=== PATIENT | female | born 1965 | race Asian ===

== ENCOUNTER 2022-04-21 01:05 | Inpatient (IN) | payer OTHER ==
[~2022-04-21] VITALS: Ht 162.6 cm; Wt 122.5 kg
--- NOTE | 2022-04-21 01:15 | NUR ---
KRISHNA FROM [facility] C/O LOW BP AND TACHYCARDIA SINCE 1500. UPON TRIAGE + H/A. PT A/OX2. TOLERATING R/A WELL WITH NO RESP DISTRESS. CONNECTED PT TO POX AND MONITOR. SAFETY MEASURES IN PLACE.
[2022-04-21] MEDS ORDERED: ACETAMINOPHEN ES 500 MG TABLET ONE (01:19)
--- NOTE | 2022-04-21 01:25 | NUR ---
PER EMS; PT TOOK TYLENOL 1000MG PO AT 0000. DR. SUSANA WESTBROOK AWARE AND D/C TYLENOL ORDER.
[2022-04-21] MEDS ORDERED: IV NS 0.9% 1,000 ML BAG IV ONE ×2 (01:30→02:30)
[2022-04-21] MEDS ORDERED: ACETAMINOPHEN 325 MG TABLET PO ONE (01:30)
--- NOTE | 2022-04-21 01:36 | NUR ---
IV ESTABLISHED RAC #18G S/L BLOOD AND COVID ANTIGEN SWAB COLLECTED AND SENT TO LAB
[2022-04-21 01:49] LABS: BASOPHILS % (AUTO) 0.2 % (0.0-2.0); HEMATOCRIT 37 % (33-45); LYMPHOCYTES # (AUTO) 1.3 K/uL (0.8-4.8); LYMPHOCYTES % (AUTO) 8.5 % (20.0-44.0); MEAN CORPUSCULAR HGB CONC 33 g/dl (31.0-36.0); MEAN CORPUSCULAR VOLUME 83 fL (82-100); MONOCYTES # (AUTO) 1.7 K/uL (0.1-1.30); MONOCYTES % (AUTO) 11.4 % (2.0-12.0); NEUTROPHILS % (AUTO) 79.9 % (43.0-81.0); PLATELET COUNT (AUTO) 180 K/uL (150-450); RED BLOOD CELL COUNT(AUTO) 4.44 MIL/uL (4.0-5.2)
--- NOTE | 2022-04-21 01:57 | NUR ---
URINE COLLECTED VIA F/A AND MRSA SWAB COLLECTED VIA L NARE AND SENT TO LAB
[2022-04-21 01:59] LABS: CALCIUM, SERUM 8.8 mg/dL (8.5-10.1); CARBON DIOXIDE 25 mmol/L (21-32); CHLORIDE 96 mmol/L (98-107); CREATININE 0.9 mg/dL (0.6-1.3); GLUCOSE 143 mg/dL (74-106); POTASSIUM 3.4 mmol/L (3.5-5.1); SODIUM SERUM 130 mmol/L (136-145); UREA NITROGEN, BLOOD 10 mg/dL (7-18)
[2022-04-21 02:12] LABS: ALANINE AMINOTRANSFERASE 47 U/L (12-78); ALBUMIN 2.8 g/dL (3.4-5.0); ALKALINE PHOSPHATASE 293 U/L (46-116); ASPARTATE AMINOTRANSFERASE 61 U/L (15-37); BILIRUBIN,DIRECT 0.9 mg/dL (0.0-0.2); BILIRUBIN,TOTAL 1.5 mg/dL (0.2-1.0); TOTAL PROTEIN, SERUM 7.8 g/dL (6.4-8.2)
[2022-04-21 02:16] LABS: BILIRUBIN,URINE 1+ (NEGATIVE); COLOR,URINE DARK YELLOW (YELLOW); LEUKOCYTE ESTERASE ,URINE 1+ (NEGATIVE); NITRITE, URINE POSITIVE (NEGATIVE); PH,URINE >9.0 (5.0-8.0); PROTEIN,URINE 2+ mg/dl (NEGATIVE); UGLUCOSE NEGATIVE (NEGATIVE); UROBILINOGEN,URINE 0.2 EU/dL (0.2)
[2022-04-21 02:17] LABS: BACTERIA,URINE Few /HPF (None Seen); SQUAMOUS EPITHELIAL CELL,UR Few /HPF (None Seen)
[2022-04-21] MEDS ORDERED: CEFTRIAXONE 1GM BAG (ER ONLY) 1 GM/50 ML PIGGYBACK IV ONE (02:30)
[2022-04-21] MEDS ORDERED: CEFTRIAXONE 1GM BAG (ER ONLY) 50 ML IV ONE (02:45)
[2022-04-21] MEDS ORDERED: DOCU100C36 PO (04:13)
[2022-04-21] MEDS ORDERED: BRIM5DRO3 LEFTEYE (04:13)
[2022-04-21] MEDS ORDERED: NORT25CA5 PO (04:13)
[2022-04-21] MEDS ORDERED: BENA20TA9 PO (04:13)
[2022-04-21] MEDS ORDERED: METF-442 PO (04:13)
[2022-04-21] MEDS ORDERED: MONT10TA22 PO (04:13)
[2022-04-21] MEDS ORDERED: INSU100I26 SQ (04:13)
[2022-04-21] MEDS ORDERED: FLUT1DIS INH (04:13)
[2022-04-21] MEDS ORDERED: OMEP20TA5 PO (04:13)
[2022-04-21] MEDS ORDERED: PREG150C PO (04:13)
[2022-04-21] MEDS ORDERED: MAGN400T8 PO (04:13)
[2022-04-21] MEDS ORDERED: LATA2.5D15 EACHEYE (04:13)
[2022-04-21] MEDS ORDERED: AMLO-212 PO (04:13)
[2022-04-21] MEDS ORDERED: DULO20CA PO (04:13)
[2022-04-21] MEDS ORDERED: SENN-18 PO (04:13)
[2022-04-21] MEDS ORDERED: OXYB-58 PO (04:13)
[2022-04-21] MEDS ORDERED: CHOL200026 PO (04:13)
[2022-04-21] MEDS ORDERED: AMLO2.5T4 PO (04:13)
[2022-04-21] MEDS ORDERED: FLUT16SP BNOSTRILS (04:13)
[2022-04-21] MEDS ORDERED: KETO10DR3 LEFTEYE (04:13)
[2022-04-21] MEDS ORDERED: TIMO5SOL11 EACHEYE (04:13)
[2022-04-21] MEDS ORDERED: ATOR40TA PO (04:13)
[2022-04-21] MEDS ORDERED: VALP250S4 PO (04:13)
[2022-04-21] MEDS ORDERED: DORZ10DR10 EACHEYE (04:13)
[2022-04-21] MEDS ORDERED: BACL10TA PO (04:13)
--- NOTE | 2022-04-21 04:17 | NUR ---
PAGED NAVAL AIRCREWMAN OPERATOR FOR DR FUENTES, [facility]
--- NOTE | 2022-04-21 04:59 | NUR ---
RE PAGED MIKE FOR DR FUENTES
[2022-04-21] MEDS ORDERED: HYDROCODONE/APAP 5/325MG TABLET PO PRN (06:30)
[2022-04-21] MEDS ORDERED: ONDANSETRON HCL/PF 4 MG/2 ML VIAL IVP PRN (06:30)
[2022-04-21] MEDS ORDERED: TEMAZEPAM 15 MG CAPSULE PO PRN (06:30)
[2022-04-21] MEDS ORDERED: MAG HYDROX/AL HYDROX/SIMETH 30 ML UDC PO PRN (06:30)
[2022-04-21] MEDS ORDERED: MAGNESIUM HYDROXIDE 30 ML UDC PO PRN (06:30)
[2022-04-21] MEDS ORDERED: DEXTROSE 50%-WATER 50 ML DISP.SYRIN IV PRN (06:30)
[2022-04-21] MEDS ORDERED: Z GUARD REMEDY 4 OZ OINT TP PRN (06:30)
[2022-04-21] MEDS ORDERED: MORPHINE SULFATE INJ 2 MG/ML DISP.SYRIN IV PRN (06:30)
--- NOTE | 2022-04-21 07:15 | NUR ---
RECEIVEDPT FROM TATIANA CARRERA PT AWAKE FALLOW COMMAND AND ORINTED X4 NO PAIN NOTED
--- NOTE | 2022-04-21 08:00 | NUR ---
RESTING AND ASLEEPY HR 133B/MIN DININES CHEST PAIN OR SOB
--- NOTE | 2022-04-21 09:25 | NUR ---
TEMP 100F TYLENOLE 650MG PO GIVEN
[2022-04-21] MEDS: BLOOD SUGAR DIAGNOSTIC 1 EACH STRIP IN SCH ×4 (09:34→22:41)
[2022-04-21] MEDS ORDERED: ACETAMINOPHEN 325 MG TABLET ONE (09:48)
[2022-04-21] MEDS ORDERED: PANTOPRAZOLE 40 MG TABLET.DR PO ONE (09:48)
[2022-04-21] MEDS: PANTOPRAZOLE 40 MG TABLET.DR PO SCH (09:50)
[2022-04-21] MEDS: ACETAMINOPHEN 325 MG TABLET PO PRN ×2 (09:51→20:12)
[2022-04-21] MEDS: IV NS 0.9% 1,000 ML IV PRN (10:02)
--- NOTE | 2022-04-21 10:23 | NUR ---
WATING FOR MONITER BED
--- NOTE | 2022-04-21 11:35 | NUR ---
room 324
--- NOTE | 2022-04-21 11:45 | NUR ---
HAND OFF CLOVER RN TO ROOM 324 VIA RADHA STABLE AWAKE AND ALERT
--- NOTE | 2022-04-21 11:55 | NUR ---
RN Receiving Report Patient arrived to unit. AOx4 able to express her concerns. Introduced myself, oriented pt to unit and made her aware of call light use. Patient states no pain, no distress. All safety precautions taken, call light and table within reach bed at lowest position.
[2022-04-21 16:00] VITALS: BP 133/74
[2022-04-21] MEDS: BENAZEPRIL HCL 10 MG TABLET PO SCH (17:42)
[2022-04-21] MEDS: MONTELUKAST SODIUM (10MG) 10 MG TABLET PO SCH (17:42)
[2022-04-21] MEDS: PREGABALIN 100 MG CAPSULE PO SCH (17:42)
[2022-04-21] MEDS: OXYBUTYNIN CHLORIDE ER 5 MG TAB PO SCH (17:43)
[2022-04-21] MEDS: VALPROIC ACID 250 MG/5 ML UDC PO SCH (17:43)
[2022-04-21] MEDS: DOCUSATE SODIUM 100 MG CAPSULE PO SCH (17:43)
[2022-04-21] MEDS: BACLOFEN (10 MG) 10 MG TABLET PO SCH (17:47)
[2022-04-21] MEDS: DORZOLAMIDE OPTH 2% 10 ML BOTTLE EACHEYE SCH (17:48)
--- NOTE | 2022-04-21 18:08 | NUR ---
RN Closing Note Patient AOx3-4 able to express her concerns Patient stable throughout shift, administered medication and provided care as needed. Patient able to respond to questions correctly, takes her time to recall information. All safety precautions taken, call light and table within reach. Will endorse to night nurse for continuity of care.
--- NOTE | 2022-04-21 20:04 | NUR ---
MDS MANAGER OPENING NOTE PATIENT SLEEPING IN BED, EASILY AWAKENED, PT ALERT/ORIENTED X 3 WITH DELAYED SPEECH, PT ABLE TO MAKE NEEDS KNOWN. PATIENT STABLE ON RA, NO S/S OF DISTRESS OR SOB NOTED, BREATHING EVEN AND UNLABORED. PATIENT ON EXTERNAL MARZIPAN MAKER READING SINUS TACHY, HR: 125. SINCLAIR CATHETER IN PLACE AND DRAINING URINE TO GRAVITY. IV ACCESS ON LEFT AC # 18G INTACT AND INFUSING NS @ 75 ML/HR. SAFETY MEASURES IN PLACE: CALL LIGHT WITHIN REACH, SIDE RAILS UP X 2, BED LOCKED IN LOWEST POSITION, HOB ELEVATED, BED ALARM ON. WILL CONTINUE TO MONITOR PATIENT
[2022-04-21 21:06] VITALS: BP 118/68
[2022-04-21] MEDS: ATORVASTATIN 40 MG TABLET PO SCH (22:41)
[2022-04-21] MEDS: DULOXETINE HCL 30 MG CAPSULE.DR PO SCH (22:41)
[2022-04-21] MEDS: NORTRIPTYLINE HCL 25 MG CAPSULE PO SCH (22:42)
[2022-04-21] MEDS: INSULIN GLARGINE, 100 UNIT/ML CARTRIDGE SQ SCH (22:54)
[2022-04-21] MEDS: LATANOPROST EYE DROP 0.005% 2.5 ML BOTTLE EACHEYE SCH (23:00)
[2022-04-22 01:14] VITALS: BP 96/50
[2022-04-22] MEDS ORDERED: CEFTRIAXONE 1 G in IV D5W 50 ML IV SCH (02:00)
[2022-04-22] MEDS: CEFTRIAXONE 2 G in IV D5W 100 ML IV SCH (03:16)
[2022-04-22] MEDS: ACETAMINOPHEN 325 MG TABLET PO PRN ×2 (05:30→17:17)
[2022-04-22] MEDS: IV NS 0.9% 1,000 ML IV PRN ×2 (05:47→22:25)
[2022-04-22 06:00] VITALS: BP 108/53
[2022-04-22 06:21] LABS: BASOPHILS % (AUTO) 0.4 % (0.0-2.0); HEMATOCRIT 30 % (33-45); HEMOGLOBIN 9.9 g/dL (11.5-14.8); LYMPHOCYTES # (AUTO) 1.4 K/uL (0.8-4.8); LYMPHOCYTES % (AUTO) 14.7 % (20.0-44.0); MEAN CORPUSCULAR HGB CONC 33 g/dl (31.0-36.0); MEAN CORPUSCULAR VOLUME 83 fL (82-100); MONOCYTES # (AUTO) 1.7 K/uL (0.1-1.30); MONOCYTES % (AUTO) 16.8 % (2.0-12.0); NEUTROPHILS # (AUTO) 6.6 K/uL (1.8-8.9); NEUTROPHILS % (AUTO) 67.1 % (43.0-81.0); PLATELET COUNT (AUTO) 111 K/uL (150-450); RED BLOOD CELL COUNT(AUTO) 3.58 MIL/uL (4.0-5.2); WHITE BLOOD COUNT (AUTO) 9.8 K/uL (4.3-11.0)
[2022-04-22 06:57] LABS: CALCIUM, SERUM 8.1 mg/dL (8.5-10.1); CREATININE 0.8 mg/dL (0.6-1.3); MAGNESIUM 1.6 mg/dL (1.8-2.4); PHOSPHORUS 1.9 mg/dL (2.5-4.9)
--- NOTE | 2022-04-22 07:03 | NUR ---
AUCTIONEER ART CLOSING NOTE PATIENT SLEEPING IN BED, EASILY AWAKENED, PT ALERT/ORIENTED X 3 WITH DELAYED SPEECH, PT ABLE TO MAKE NEEDS KNOWN. PATIENT STABLE ON RA, NO S/S OF DISTRESS OR SOB NOTED, BREATHING EVEN AND UNLABORED. PATIENT ON EXTERNAL BULK PICKER READING SINUS TACHY, HR: 121. SINCLAIR CATHETER IN PLACE AND DRAINING URINE TO GRAVITY, OUTPUT OF 650 ML. IV ACCESS ON RIGHT AC # 18G INTACT AND INFUSING NS @ 75 ML/HR. MEDICATIONS GIVEN ORDERED, PT NEEDS MET THROUGHOUT SHIFT, PATIENT TURNED Q2H. SAFETY MEASURES IN PLACE: CALL LIGHT WITHIN REACH, SIDE RAILS UP X 2, BED LOCKED IN LOWEST POSITION, HOB ELEVATED, BED ALARM ON. WILL ENDORSE TO DAYSHIFT RN FOR CONTINUITY OF CARE
[2022-04-22] MEDS: BLOOD SUGAR DIAGNOSTIC 1 EACH STRIP IN SCH ×4 (07:10→22:23)
[2022-04-22] MEDS: INSULIN REGULAR, HUMAN 100 UNIT/ML 3 ML VIAL SQ PRN ×3 (07:11→16:49)
--- NOTE | 2022-04-22 07:30 | NUR ---
RN OPENING NOTE RECEIVED PATIENT IN BED AWAKE, A/O X4, VERBALLY RESPONSIVE. NO SIGNS OF ACUTE DISTRESS NOTED. ON ROOM AIR, TOLERATING WELL, NO SOB NOTED, BREATHING EVEN AND UNLABORED. NOTED WITH IV ACCESS ON RAC #18G, INTACT AND PATENT WITH NS @ 75 ML RUNNING. ON RETAIL LEASING AGENT SHOWING SINUS TACHYCARDIA, HR @ 115. DENIES ANY CHEST PAIN . SAFETY MEASURE IN PLACE. BED IN LOWEST AND LOCKED POSITION, SIDE RAILS UP X2, CALL LIGHT PLACED WITHIN EASY REACH. WILL CONTINUE TO MONITOR PATIENT.
[2022-04-22 08:29] VITALS: BP 86/46
[2022-04-22] MEDS: PANTOPRAZOLE 40 MG TABLET.DR PO SCH (08:30)
[2022-04-22] MEDS: SENNOSIDES 8.6 MG TABLET PO SCH (08:30)
[2022-04-22] MEDS: OXYBUTYNIN CHLORIDE ER 5 MG TAB PO SCH ×3 (08:30→16:48)
[2022-04-22] MEDS: VALPROIC ACID 250 MG/5 ML UDC PO SCH ×2 (08:30→16:48)
[2022-04-22] MEDS: PREGABALIN 100 MG CAPSULE PO SCH ×3 (08:30→16:48)
[2022-04-22] MEDS: BACLOFEN (10 MG) 10 MG TABLET PO SCH ×3 (08:31→16:48)
[2022-04-22] MEDS: BENAZEPRIL HCL 10 MG TABLET PO SCH ×2 (08:31→16:48)
[2022-04-22] MEDS: DOCUSATE SODIUM 100 MG CAPSULE PO SCH ×2 (08:31→16:48)
[2022-04-22] MEDS: AMLODIPINE BESYLATE 5 MG TABLET PO SCH (08:31)
[2022-04-22] MEDS: MAGNESIUM OXIDE 400 MG TABLET PO SCH (08:31)
[2022-04-22] MEDS: DORZOLAMIDE OPTH 2% 10 ML BOTTLE EACHEYE SCH ×2 (08:38→16:57)
[2022-04-22] MEDS: TIMOLOL -XE 0.5% 5 ML BOTTLE EACHEYE SCH (08:38)
[2022-04-22 09:01] LABS: POTASSIUM 2.8 mmol/L (3.5-5.1)
--- NOTE | 2022-04-22 09:56 | NUR ---
WOUND CARE CONSULT: PT PRESENTS WITH LOWER ABDOMINAL WOUND WITH SMALL AMOUNT OF SEROSANGUINOUS DRAINAGE, NO ODOR. PT WAS SEEN WITH SURGICAL P.A. AND RECOMMENDATIONS FOR WOUND CARE AND SKIN PROTECTION DISCUSSED WITH NURSING STAFF. PT STATES PREVIOUSLY HAD SUPRAPUBIC CATH. HEALED AREA NOTED SUPERIOR TO OPEN WOUND. PT PLACED ON ISOFLEX LOW AIRLOSS BED. IN AGREEMENT WITH PLAN OF CARE. Addendum: 04/22/22 at 0959 by ROBERT WOOD WNDNU Amended: Links added.
[2022-04-22] MEDS ORDERED: K PHOS NEUTRAL 250 MG TABLET PO ONE (11:00)
[2022-04-22] MEDS: Magnesium 1GM/D5W 100ML PREMIX 100 ML IV SCH ×2 (11:53→13:06)
[2022-04-22] MEDS: POTASSIUM CHLORIDE 20 MEQ TAB.PRT.SR PO SCH ×2 (12:25→16:48)
[2022-04-22 15:55] VITALS: BP 132/75
[2022-04-22] MEDS: MONTELUKAST SODIUM (10MG) 10 MG TABLET PO SCH (17:03)
--- NOTE | 2022-04-22 18:49 | NUR ---
RN CLOSING NOTE PATIENT IN BED AWAKE, WATCHING TV.VERBALLY RESPONSIVE. NO SIGNS OF ACUTE DISTRESS NOTED. REMAINS STABLE ON ROOM AIR, NO SOB NOTED, BREATHING EVEN AND UNLABORED. WITH IV ACCESS ON RAC #18G, INTACT AND PATENT WITH NS @ 75 ML RUNNING. ON E COMMERCE MARKETING ANALYST SHOWING SINUS TACHYCARDIA, HR @ 124. DENIED ANY CHEST PAIN . WITH F/C INTACT, DRAINING CLEAR EZE COLOR URINE. ALL DUE MEDS GIVEN TAKEN WELL. SAFETY MEASURE IN PLACE. BED IN LOWEST AND LOCKED POSITION, SIDE RAILS UP X2, CALL LIGHT PLACED WITHIN EASY REACH. WILL ENDORSE TO NEXT SHIFT FOR CONTINUITY OF CARE.
--- NOTE | 2022-04-22 19:20 | NUR ---
SCREEN VENT BINDER OPENING NOTE PATIENT IS IN BED WATCHING TV. SHE IS ALERT/ORIENTED X 4. PATIENT IS ON RA, NO S/S OF DISTRESS OR SOB; BREATHING EVEN AND UNLABORED. PATIENT ON EXTERNAL TREE WORKER READING SINUS TACHY, HR CAN REACH AROUND 110S. SINCLAIR CATHETER IS IN PLACE AND DRAINING URINE BY GRAVITY. IV ACCESS ON R AC # 18G; PATENT AND INTACT, RUNNING NS @ 75 ML/HR. SAFETY MEASURES IN PLACE: CALL LIGHT AND TABLE ARE WITHIN REACH; SIDE RAILS UP X 2, BED IS LOCKED AND IN LOWEST POSITION; HOB ELEVATED ABOUT 15 DEGREE, BED ALARM ON. WILL CONTINUE MONITORING THE PATIENT AND PROVIDE THE CARE PATIENT NEEDS.
[2022-04-22] MEDS: ATORVASTATIN 40 MG TABLET PO SCH (22:23)
[2022-04-22] MEDS: LATANOPROST EYE DROP 0.005% 2.5 ML BOTTLE EACHEYE SCH (22:23)
[2022-04-22] MEDS: DULOXETINE HCL 30 MG CAPSULE.DR PO SCH (22:23)
[2022-04-22] MEDS: NORTRIPTYLINE HCL 25 MG CAPSULE PO SCH (22:24)
[2022-04-22] MEDS: INSULIN GLARGINE, 100 UNIT/ML CARTRIDGE SQ SCH (22:38)
[2022-04-23 00:06] VITALS: BP 132/71
[2022-04-23] MEDS: CEFTRIAXONE 2 G in IV D5W 100 ML IV SCH (02:09)
[2022-04-23] MEDS: ACETAMINOPHEN 325 MG TABLET PO PRN (02:19)
[2022-04-23 04:17] VITALS: BP 115/71
--- NOTE | 2022-04-23 07:00 | NUR ---
SURFACE ROOM SHOP OPTICIAN CLOSING NOTE PATIENT IS IN BED, SLEEPING. PATIENT IS ON RA, NO S/S OF DISTRESS OR SOB; BREATHING EVEN AND UNLABORED. TOLERATED WELL. PATIENT IS ON EXTERNAL APPLIANCE FIXER READING SINUS TACHY, HR CAN REACH AROUND 110s. SINCLAIR CATHETER IS IN PLACE AND DRAINING URINE BY GRAVITY. IV ACCESS ON R AC # 18G; PATENT AND INTACT, RUNNING NS @ 75 ML/HR. SAFETY MEASURES IN PLACE: CALL LIGHT AND TABLE ARE WITHIN REACH; SIDE RAILS UP X 2, BED IS LOCKED AND IN LOWEST POSITION; HOB ELEVATED ABOUT 15 DEGREE, BED ALARM ON. WILL ENDORSE NEXT SHIFT NURSE FOR CONTINUING PATIENT CARE.
[2022-04-23] MEDS: BLOOD SUGAR DIAGNOSTIC 1 EACH STRIP IN SCH ×2 (07:03→11:54)
[2022-04-23 07:08] LABS: CALCIUM, SERUM 8.1 mg/dL (8.5-10.1); CREATININE 0.6 mg/dL (0.6-1.3); MAGNESIUM 1.8 mg/dL (1.8-2.4); PHOSPHORUS 2.5 mg/dL (2.5-4.9); POTASSIUM 3.2 mmol/L (3.5-5.1)
[2022-04-23 07:10] LABS: BASOPHILS % (AUTO) 0.6 % (0.0-2.0); EOSINOPHILS % (AUTO) 4.4 % (0.0-6.0); HEMATOCRIT 29 % (33-45); HEMOGLOBIN 9.7 g/dL (11.5-14.8); LYMPHOCYTES % (AUTO) 17.5 % (20.0-44.0); MEAN CORPUSCULAR HGB CONC 34 g/dl (31.0-36.0); MEAN CORPUSCULAR VOLUME 82 fL (82-100); MONOCYTES # (AUTO) 0.9 K/uL (0.1-1.30); MONOCYTES % (AUTO) 15.4 % (2.0-12.0); NEUTROPHILS # (AUTO) 3.7 K/uL (1.8-8.9); NEUTROPHILS % (AUTO) 62.1 % (43.0-81.0); PLATELET COUNT (AUTO) 104 K/uL (150-450); RED BLOOD CELL COUNT(AUTO) 3.51 MIL/uL (4.0-5.2); WHITE BLOOD COUNT (AUTO) 5.9 K/uL (4.3-11.0)
--- NOTE | 2022-04-23 07:30 | NUR ---
NUCLEAR ENGINEERING TECHNICIAN NOTES PT IN BED, AWAKE, ALERT AND ORIENTED, NO COMPLAINT OF PAIN, NOT IN DISTRESS, CALL LIGHT WITHIN REACH, IV FLUIDS INFUSING WELL, F/C DRAINING WELL, NEEDS ATTENDED.
[2022-04-23 08:00] VITALS: BP 103/64
[2022-04-23] MEDS ORDERED: POTASSIUM CHLORIDE 20 MEQ TAB.PRT.SR PO ONE (08:30)
[2022-04-23] MEDS: VALPROIC ACID 250 MG/5 ML UDC PO SCH (08:56)
[2022-04-23] MEDS: PANTOPRAZOLE 40 MG TABLET.DR PO SCH (08:57)
[2022-04-23] MEDS: BACLOFEN (10 MG) 10 MG TABLET PO SCH ×2 (08:57→12:25)
[2022-04-23] MEDS: MAGNESIUM OXIDE 400 MG TABLET PO SCH (08:57)
[2022-04-23] MEDS: OXYBUTYNIN CHLORIDE ER 5 MG TAB PO SCH ×2 (08:57→12:25)
[2022-04-23] MEDS: SENNOSIDES 8.6 MG TABLET PO SCH (08:57)
[2022-04-23] MEDS ORDERED: PREGABALIN 25 MG CAPSULE PO SCH (09:00)
[2022-04-23] MEDS: BENAZEPRIL HCL 10 MG TABLET PO SCH (09:00)
[2022-04-23] MEDS: AMLODIPINE BESYLATE 5 MG TABLET PO SCH (09:00)
[2022-04-23] MEDS ORDERED: DOCUSATE SODIUM 250 MG CAPSULE PO SCH (09:00)
[2022-04-23] MEDS: PREGABALIN 100 MG CAPSULE PO SCH ×2 (09:24→12:25)
[2022-04-23] MEDS: PREGABALIN 25 MG CAPSULE PO SCH ×2 (09:24→12:25)
[2022-04-23] MEDS: TIMOLOL -XE 0.5% 5 ML BOTTLE EACHEYE SCH (10:03)
[2022-04-23] MEDS: DORZOLAMIDE OPTH 2% 10 ML BOTTLE EACHEYE SCH (10:04)
[2022-04-23] MEDS ORDERED: CEPH500C2 PO (11:04)
[2022-04-23 12:00] VITALS: BP 135/84
--- NOTE | 2022-04-23 15:40 | NUR ---
SECURITY CHIEF MUSEUM NOTES PT IN BED, AWAKE, ALERT AND ORIENTED, DENIES PAIN, NOT IN DISTRESS, CALL LIGHT WITHIN REACH, DISCHARGE ORDER RECEIVED FROM MD, DISCHARGE AND MEDICATION INSTRUCTIONS PROVIDED TO PT, VERBALIZED UNDERSTANDING, BELONGINGS ACCOUNTED FOR, WOUND TREATMENT AND DRESSING CHANGE DONE TO LOWER ABDOMEN WOUND, REPORT GIVEN TO LUZ ELENA CARRERA OF [facility], PICKED UP BY 2 AMBULANCE PERSONNEL, LEFT VIA GUERNEY IN STABLE CONDITION.
[2022-04-23 18:55] LABS: EOSINOPHILS % (MANUAL) 4 % (0-4); LYMPHOCYTES % (MANUAL) 14 % (16-48); MONOCYTES % (MANUAL) 11 % (0-11.0); NEUTROPHILS % (MANUAL) 71 (42-76)
== END 2022-04-23 15:50 | DRG 720 ==
LOC: ER 01:07 → TELE 11:42
PROVIDERS: ADMIT Nurse Practitioner Acute Care; ATTEND Nurse Practitioner Acute Care
DX: A41.9 Sepsis, unspecified organism (principal); G93.41 Metabolic encephalopathy; E46 Unspecified protein-calorie malnutrition; E87.1 Hypo-osmolality and hyponatremia; E83.39 Other disorders of phosphorus metabolism; J20.9 Acute bronchitis, unspecified; N39.0 Urinary tract infection, site not specified; E87.6 Hypokalemia; E11.9 Type 2 diabetes mellitus without complications; E83.42 Hypomagnesemia; Z68.42 Body mass index [BMI] 45.0-49.9, adult; E66.01 Morbid (severe) obesity due to excess calories; I10 Essential (primary) hypertension; T81.31XA Disruption of external operation (surgical) wound, not elsewhere classified, initial encounter; Y83.8 Other surgical procedures as the cause of abnormal reaction of the patient, or of later complication, without mention of misadventure at the time of the procedure; Y92.89 Other specified places as the place of occurrence of the external cause; J44.0 Chronic obstructive pulmonary disease with (acute) lower respiratory infection; Z79.51 Long term (current) use of inhaled steroids; Z79.899 Other long term (current) drug therapy; Z88.2 Allergy status to sulfonamides; Z88.6 Allergy status to analgesic agent; Z88.8 Allergy status to other drugs, medicaments and biological substances
CPT/HCPCS: 36415; 71045-TC; 80048-TC; 80076-TC; 81001; 82962-TC; 83605-TC; 83735-TC; 83880; 84100-TC; 84484-TC; 85025-TC; 85730-TC; 87040-TC; 87081-TC; 87086-TC; 97110-TC; 97530-TC; A6253; A6403; A6407; C9803; G0378; J0696; J1815; J3475; J7030; J7060

== ENCOUNTER 2022-06-18 23:00 | Inpatient (IN) | payer OTHER ==
[~2022-06-18] VITALS: Ht 162.6 cm; Wt 108.4 kg
[~2022-06-18 23:00] MED LIST: AMLO-212 PO; AMLO2.5T4 PO; ATOR40TA PO; BACL10TA PO; BENA20TA9 PO; BRIM5DRO3 EACHEYE; CEPH500C2 PO; CHOL200026 PO; DOCU100C36 PO; DORZ10DR10 EACHEYE; DULO20CA PO; FLUT16SP; FLUT1DIS INH; INSU100I26 SQ; KETO10DR3 EACHEYE; LATA2.5D15 EACHEYE; MAGN400T8 PO; METF-442 PO; MONT10TA22 PO; NORT25CA5 PO; OMEP20TA5 PO; OXYB-58 PO; PREG150C PO; SENN-18 PO; TIMO5SOL11 EACHEYE; VALP250S4 PO
--- NOTE | 2022-06-18 23:10 | NUR ---
CODE STROKE ACTIVATED
--- NOTE | 2022-06-18 23:10 | NUR ---
[id number] FROM [facility] FOR DIZZY X 30 MIN. PT AAO X 4, BREATHING UNLABORED. PT STATES SYMPTOMS STARTED AROUND 1905. PT UNABLE TO MOVE LUE. NIHSS AND SWALLOW EVAL DONE. PER PATIENT SHE HAS A KNOWN DYSPHAGIA BUT SWALLOWS WHOLE PILLS IN APPLE SAUCE FROM THE FACILITY. PT SEEN AND EXAMINED BY DR DE LA ROSA. PT ATTACHED TO MONITOR AND POX. SAFETY MEASURES IN PLACE.
[2022-06-18] MEDS ORDERED: CT SWABBABLE VALVE TRANS SET 1 EA INFUS.SET MC ONE (23:15)
[2022-06-18] MEDS ORDERED: IV NS 0.9% 250 ML IV ONE (23:15)
[2022-06-18] MEDS ORDERED: IOHEXOL-350 100 ML VIAL IV ONE (23:15)
--- NOTE | 2022-06-18 23:15 | NUR ---
PT TAKEN TO CT VIA LAURA
--- NOTE | 2022-06-18 23:15 | NUR ---
RAC #20G S/L BLOOD COLLECTED AND SENT TO LAB
--- NOTE | 2022-06-18 23:15 | NUR ---
NIHSS SCORE: 3, DR DE LA ROSA AWARE
--- NOTE | 2022-06-18 23:15 | NUR ---
POC BS ACCUCHECK 168
[2022-06-18 23:23] LABS: BASOPHILS # (AUTO) 0.1 K/uL (0.0-0.2); BASOPHILS % (AUTO) 0.7 % (0.0-2.0); EOSINOPHILS % (AUTO) 3.7 % (0.0-6.0); HEMATOCRIT 36 % (33-45); HEMOGLOBIN 11.5 g/dL (11.5-14.8); MEAN CORPUSCULAR HGB CONC 32 g/dl (31.0-36.0); MEAN CORPUSCULAR VOLUME 84 fL (82-100); MONOCYTES # (AUTO) 0.7 K/uL (0.1-1.30); MONOCYTES % (AUTO) 8.2 % (2.0-12.0); NEUTROPHILS # (AUTO) 5.4 K/uL (1.8-8.9); NEUTROPHILS % (AUTO) 63.4 % (43.0-81.0); PLATELET COUNT (AUTO) 230 K/uL (150-450); RED BLOOD CELL COUNT(AUTO) 4.24 MIL/uL (4.0-5.2); WHITE BLOOD COUNT (AUTO) 8.5 K/uL (4.3-11.0)
[2022-06-18 23:30] LABS: CALCIUM, SERUM 9.2 mg/dL (8.5-10.1); CARBON DIOXIDE 29 mmol/L (21-32); CHLORIDE 100 mmol/L (98-107); CREATININE 0.7 mg/dL (0.6-1.3); GLUCOSE 167 mg/dL (74-106); POTASSIUM 4.3 mmol/L (3.5-5.1); SODIUM SERUM 134 mmol/L (136-145); UREA NITROGEN, BLOOD 12 mg/dL (7-18)
--- NOTE | 2022-06-18 23:43 | NUR ---
ELECTRONICS WARFARE TECHNICIAN AT PT'S BEDSIDE
[2022-06-19] MEDS ORDERED: CLOPIDOGREL BISULFATE 75 MG TABLET PO STA (00:37)
--- NOTE | 2022-06-19 00:56 | NUR ---
TELEPHONE CALL FROM INDIRA OF [facility] WANTING TO VERIFY IF PATIENT WILL BE ADMITTED AND IF SO, THE PT'S DIAGNOSIS. RELAYED INFO PER CHART
[2022-06-19] MEDS ORDERED: hydrALAZINE HCL IV 20 MG VIAL IV PRN (01:00)
--- NOTE | 2022-06-19 01:21 | NUR ---
ECHO AT BEDSIDE
--- NOTE | 2022-06-19 02:30 | NUR ---
REPORT GIVEN TO WOODS SUPERINTENDENTDEBI CRABTREE. PT WILL GO TO BED 328-1
--- NOTE | 2022-06-19 03:19 | NUR ---
PT TRANSFERRING TO 3W 329 VIA ACLS PROTOCOL. ALL BELONGINGS WITH PT. VSS
--- NOTE | 2022-06-19 03:57 | NUR ---
PASSED SWALLOW EVAL, NIHSS SCORE 9, NOTIFIED LAZARUS WILLARD AT [id number]
[2022-06-19 04:00] VITALS: BP 130/89
[2022-06-19] MEDS: HYDROCODONE/APAP 5/325MG TABLET PO PRN ×3 (04:00→21:12)
[2022-06-19] MEDS: ENOXAPARIN SODIUM 40 MG/0.4 ML DISP.SYRIN SQ SCH ×2 (04:01→21:13)
[2022-06-19 04:19] VITALS: BP 113/68
[2022-06-19 05:57] VITALS: BP 116/63
--- NOTE | 2022-06-19 06:28 | NUR ---
ADMITTED FROM [facility] DUE TO DIZZINESS AND DOUBLE VISION, HISTORY OF SPINAL STENOSIS AND CERVICAL SURGERY. ALERT/ORIENTED X4, ROOM AIR, NO SLURRED SPEECH, NO COMPLAIN OF DOUBLE VISION, NIHSS SCORE 9, PASSED SWALLOW EVAL, PREFERS MEDICATION WHOLE WITH APPLE SAUCE. NEW ONSET WEAKNESS OF LEFT ARM, WEAK GRASP, UNABLE TO CARRY WEIGHT, PREVIOUSLY PATIENT ABLE TO PERFORM ADLS AND DRAW USING LEFT ARM. LEFT LEG IS FLACCID, UNABLE TO AMBULATE, SENSATION IS LESS THAN RIGHT LEG. CT HEAD, NEGATIVE, HEAD CTA NEGATIVE. FOR NEURO CONSULT, PT, OT.
[2022-06-19 06:59] LABS: CALCIUM, SERUM 9.3 mg/dL (8.5-10.1); CREATININE 0.6 mg/dL (0.6-1.3)
[2022-06-19 07:00] VITALS: BP 120/66
[2022-06-19 07:05] LABS: ALBUMIN 3.1 g/dL (3.4-5.0); BILIRUBIN,TOTAL 0.4 mg/dL (0.2-1.0); TOTAL PROTEIN, SERUM 7.8 g/dL (6.4-8.2)
--- NOTE | 2022-06-19 07:28 | NUR ---
RN OPENING NOTE RECEIVED PATIENT IN BED, AWAKE, A/O X4, VERBALLY RESPONSIVE AND ABLE TO MAKE NEEDS KN OWN. NO SIGNS OF ACUTE DISTRESS NOTED. ON ROOM AIR, BREATHING EVEN AND UNLABORED. DENIES ANY PAIN AT THIS TIME. NOTED WITH IV ACCESS ON RIGHT ANTECUBITAL AREA #20G, INTACT AND PATENT, SALINE LOCKED. WITH F/C INTACT DRAINING CLEAR YELLOW URINE VIA GRAVITY. SAFETY MEASURE IN PLACE. BED IN LOW AND LOCKED POSITION, SIDE RAILS UP X2, CALL LIGHT PLACED WITHIN EASY REAH. WILL CONTINUE TO MONITOR PATIENT.
[2022-06-19] MEDS ORDERED: NA P133E RC (08:35)
[2022-06-19] MEDS ORDERED: POLY15DR40 EACHEYE (08:35)
[2022-06-19] MEDS ORDERED: INSU100V7 SQ (08:35)
[2022-06-19] MEDS ORDERED: LIDO35.4 TD (08:35)
[2022-06-19] MEDS ORDERED: LOPE2TAB25 PO (08:35)
[2022-06-19] MEDS ORDERED: ESTR42.5 VG (08:35)
[2022-06-19] MEDS ORDERED: ASCO-352 PO (08:35)
[2022-06-19] MEDS ORDERED: ACET-2605 PO (08:35)
[2022-06-19] MEDS ORDERED: ONDA4TAB5 PO (08:35)
[2022-06-19] MEDS ORDERED: HYDR-4303 PO (08:35)
[2022-06-19] MEDS ORDERED: INSU100V39 SQ (08:35)
[2022-06-19] MEDS ORDERED: IBUP-1953 PO (08:35)
[2022-06-19] MEDS ORDERED: TIMO5DRO35 EACHEYE (08:35)
[2022-06-19] MEDS ORDERED: VALP250C3 PO (08:35)
[2022-06-19] MEDS ORDERED: BISA10SU11 RC (08:35)
[2022-06-19] MEDS ORDERED: ALBU8.5H8 IH (08:35)
[2022-06-19] MEDS ORDERED: GUAI100S11 PO (08:35)
[2022-06-19] MEDS ORDERED: MULT-447 PO (08:35)
[2022-06-19] MEDS: CLOPIDOGREL BISULFATE 75 MG TABLET PO SCH (08:38)
[2022-06-19] MEDS: PANTOPRAZOLE 40 MG TABLET.DR PO SCH (08:38)
[2022-06-19] MEDS ORDERED: DEXAMETHASONE SOD PHOSPHATE 10 MG/ML VIAL IV SCH (14:30)
--- NOTE | 2022-06-19 19:00 | NUR ---
RN CLOSING NOTE PATIENT IN BED, AWAKE, A/O X4, VERBALLY RESPONSIVE AND ABLE TO MAKE NEEDS KNOWN. NO SIGNS OF ACUTE DISTRESS NOTED. REMAINS STABLE ON ROOM AIR, BREATHING EVEN AND UNLABORED. IV ACCESS ON RIGHT ANTECUBITAL AREA #20G, INTACT AND PATENT, SALINE LOCKED. WITH F/C INTACT DRAINING CLEAR YELLOW URINE VIA GRAVITY. SAFETY MEASURE MAINTAINED. BED IN LOW AND LOCKED POSITION, SIDE RAILS UP X2, CALL LIGHT PLACED WITHIN EASY REACH. WILL ENDORSE TO NEXT SHIFT FOR CONTINUITY OF CARE.
[2022-06-19 20:00] VITALS: BP 124/85
--- NOTE | 2022-06-19 20:00 | NUR ---
tele novelty chain maker initial notes Received report from am nurse , and checked pt in bed awake and alert watching tv , patient on tele Sinus Rhythm . pt complaint of pain on her shoulder. saw patient doing ball exercise on left hand. she also have renae to gravity with clear yellow output. kept her warm and comfortable at all times. will continue monitoring. place call light at reach.
--- NOTE | 2022-06-19 21:12 | NUR ---
tele relief pharmacist notes norco tablet given per pt requested for her shoulder and back pain 11/14. Vital signs stable and no signs of any acute distress noted. will re- assess later.
[2022-06-19] MEDS ORDERED: SIMVASTATIN 20 MG TABLET PO SCH (22:00)
[2022-06-19] MEDS ORDERED: SIMVASTATIN 40 MG TABLET PO SCH (22:00)
--- NOTE | 2022-06-19 22:30 | NUR ---
tele manager biologics notes checked pt for re-assessment for her pain meds. she's resting at this time but arouse easily, Pain subside and feel much better. She also ask if she's going tomorrow. I told her that it depends on her doctors decision and depends on her blood test in am. Pt understood well. Kept her warm and comfortable at all times. will continue monitoring. call light at reach.
--- NOTE | 2022-06-20 06:54 | NUR ---
tele offset press operator helper closing notes pt back to rest after morning care done. Stable throughout the night. Tele Sinus Rhythm per monitor. Vital signs stable . all due meds given and all needs met. Kept her warm and comfortable at all times. [place] still draining well. pt still doing her left hand exercise with a ball. able to tolerated po well no aspiration noted. Bed in low and lock in position with side rails x2 up . will endorse to am nurse for continuity of care. place call light at reach.
--- NOTE | 2022-06-20 07:30 | NUR ---
TURBINE ENGINE ASSEMBLER OPENING NOTES RECEIVED PATIENT IN BED, AWAKE, A/O X4, VERBALLY RESPONSIVE AND ABLE TO MAKE NEEDS KNOWN. NO SIGNS OF ACUTE DISTRESS NOTED. ON ROOM AIR, BREATHING EVEN AND UNLABORED. DENIES ANY PAIN AT THIS TIME. ON TELE MONITOR CURRENTLY READING SINUS TACHYCARDIA AT 103BPM.NOTED WITH IV ACCESS ON RIGHT AC #20G, INTACT AND PATENT, SALINE LOCKED. WITH F/C INTACT DRAINING CLEAR YELLOW URINE VIA GRAVITY. SAFETY MEASURE IN PLACE. BED IN LOW AND LOCKED POSITION, SIDE RAILS UP X2, CALL LIGHT PLACED WITHIN EASY REACH. WILL CONTINUE TO MONITOR.
[2022-06-20 07:57] LABS: BASOPHILS % (AUTO) 0.3 % (0.0-2.0); HEMATOCRIT 36 % (33-45); HEMOGLOBIN 11.6 g/dL (11.5-14.8); LYMPHOCYTES # (AUTO) 0.9 K/uL (0.8-4.8); LYMPHOCYTES % (AUTO) 13.8 % (20.0-44.0); MEAN CORPUSCULAR HGB CONC 33 g/dl (31.0-36.0); MEAN CORPUSCULAR VOLUME 84 fL (82-100); MONOCYTES # (AUTO) 0.2 K/uL (0.1-1.30); MONOCYTES % (AUTO) 3.9 % (2.0-12.0); NEUTROPHILS # (AUTO) 5.2 K/uL (1.8-8.9); PLATELET COUNT (AUTO) 235 K/uL (150-450); RED BLOOD CELL COUNT(AUTO) 4.26 MIL/uL (4.0-5.2); WHITE BLOOD COUNT (AUTO) 6.4 K/uL (4.3-11.0)
[2022-06-20 08:06] LABS: CALCIUM, SERUM 9.5 mg/dL (8.5-10.1); CREATININE 0.5 mg/dL (0.6-1.3); POTASSIUM 4.2 mmol/L (3.5-5.1)
[2022-06-20] MEDS: PANTOPRAZOLE 40 MG TABLET.DR PO SCH (08:43)
[2022-06-20] MEDS: CLOPIDOGREL BISULFATE 75 MG TABLET PO SCH (08:43)
[2022-06-20] MEDS ORDERED: METH4TAB17 PO (10:11)
[2022-06-20] MEDS: HYDROCODONE/APAP 5/325MG TABLET PO PRN (11:51)
--- NOTE | 2022-06-20 14:47 | NUR ---
SS CONSULT REQUESTED FOR POSSIBLE STROKE, HOWEVER, PER MD NOTE THIS WAS RULED OUT.
--- NOTE | 2022-06-20 15:30 | NUR ---
GROUP PROGRAM MANAGER NOTES PATIENT WAS SEEN BY DR. PALOMARES AND WAS ORDERED FOR DISCHARGE. PATIENT IS TO BE DISCHARGED BACK TO [facility]. PATIENT IS AWAKE AND A/O X4. ON ROOM AIR TOLERATING WELL. NOT IN DISTRESS. DISCHARGE INSTRUCTION AND MEDICATION INSTRUCTION PROVIDED TO PATIENT. PATIENT VERBALIZED UNDERSTANDING. GIVEN REPORT TO DEBI LANTIGUA FROM [facility]. PATIENT IS TO BE DISCHARGE WITH SINCLAIR CATHETER FOR NEUROGENIC BLADDER. PICKED UP BY AMBULANCE PERSONNEL IN STABLE CONDITION VIA GURNEY. REMOVED IV LINE AND NAME WRIST BAND. MD AND CHARGE NURSE ARE AWARE OF THE DISCHARGE.
== END 2022-06-20 15:00 | DRG 48 ==
LOC: ER 23:03 → TELE 06-19 02:18
PROVIDERS: ADMIT Nurse Practitioner Acute Care; ATTEND Nurse Practitioner Acute Care
DX: M54.12 Radiculopathy, cervical region (principal); D68.59 Other primary thrombophilia; R53.2 Functional quadriplegia; E87.1 Hypo-osmolality and hyponatremia; E11.9 Type 2 diabetes mellitus without complications; H53.2 Diplopia; Z20.822 Contact with and (suspected) exposure to COVID-19; J44.9 Chronic obstructive pulmonary disease, unspecified; I10 Essential (primary) hypertension; M48.02 Spinal stenosis, cervical region; N31.9 Neuromuscular dysfunction of bladder, unspecified; Z88.6 Allergy status to analgesic agent; Z88.1 Allergy status to other antibiotic agents; Z88.2 Allergy status to sulfonamides; Z79.84 Long term (current) use of oral hypoglycemic drugs; Z79.51 Long term (current) use of inhaled steroids; Z79.4 Long term (current) use of insulin; Z79.899 Other long term (current) drug therapy; E66.01 Morbid (severe) obesity due to excess calories; Z74.01 Bed confinement status
CPT/HCPCS: 36415; 70450-TC; 70496-TC; 70498-TC; 70551-TC; 71045-TC; 80048-TC; 80053-TC; 80061-TC; 82962-TC; 84484-TC; 85025-TC; 85730-TC; 87081-TC; 92526; 92611-TC; 93307-TC; 97112-TC; 97530-TC; C9803; G0378; J1100; J1650; J7050; Q9967

== ENCOUNTER 2024-06-24 17:56 | Inpatient (IN) | payer OTHER ==
[2024-06-24] VITALS (8 sets, daily range): O2SAT 97–100
[~2024-06-24] VITALS: Ht 170.2 cm; Wt 119.7 kg
[~2024-06-24 17:56] MED LIST changes: +ACET-2605 PO; +ALBU8.5H8 IH; +ASCO-352 PO; +BISA10SU11 RC; -BRIM5DRO3 EACHEYE; +BRIM5DRO3 LEFTEYE; -CEPH500C2 PO; +ESTR42.5 VG; +GUAI100S11 PO; +HYDR-4303 PO; +IBUP-1953 PO; -INSU100I26 SQ; +INSU100V39 SQ; +INSU100V7 SQ; +LIDO35.4 TP; +LOPE2TAB25 PO; +METH4TAB17 PO; +MULT-447 PO; +NA P133E RC; +NITR100C6 PO; +ONDA4TAB5 PO; +POLY15DR40 EACHEYE; +TIMO5DRO35 EACHEYE; -TIMO5SOL11 EACHEYE; +VALP250C3 PO; -VALP250S4 PO
[2024-06-24] MEDS: ALBUTEROL FS 2.5 MG/3 ML VIAL.NEB NEB ONE ×2 (18:30→20:43)
[2024-06-24] MEDS: CEFEPIME 1 GM in IV D5W 50 ML IV ONE (18:30)
[2024-06-24] MEDS: IPRATROPIUM NEB FS 0.5 MG/2.5 ML AMPUL.NEB NEB ONE (18:30)
[2024-06-24] MEDS: VANCOMYCIN 1 GM in IV D5W 250 ML IV ONE (18:30)
[2024-06-24 18:56] LABS: BASOPHILS # (AUTO) 0.1 K/uL (0.0-0.2); BASOPHILS % (AUTO) 0.5 % (0.0-2.0); EOSINOPHILS # (AUTO) 0.1 K/uL (0.0-0.7); EOSINOPHILS % (AUTO) 0.5 % (0.0-6.0); HEMATOCRIT 42 % (33-45); HEMOGLOBIN 13.7 g/dL (11.5-14.8); LYMPHOCYTES # (AUTO) 1.1 K/uL (0.8-4.8); LYMPHOCYTES % (AUTO) 9.1 % (20.0-44.0); MEAN CORPUSCULAR HEMOGLOBIN 31 PG (26.0-33.0); MEAN CORPUSCULAR HGB CONC 33 g/dl (31.0-36.0); MEAN CORPUSCULAR VOLUME 93 fL (82-100); MONOCYTES # (AUTO) 0.9 K/uL (0.1-1.30); MONOCYTES % (AUTO) 7.6 % (2.0-12.0); NEUTROPHILS # (AUTO) 10.2 K/uL (1.8-8.9); NEUTROPHILS % (AUTO) 82.3 % (43.0-81.0); PLATELET COUNT (AUTO) 166 K/uL (150-450); RED BLOOD CELL COUNT(AUTO) 4.47 MIL/uL (4.0-5.2); RED CELL DISTRIBUTION WIDTH 17.1 % (11.5-15.0); WHITE BLOOD COUNT (AUTO) 12.4 K/uL (4.3-11.0)
[2024-06-24 19:12] LABS: CALCIUM, SERUM 9.3 mg/dL (8.5-10.1); CARBON DIOXIDE 24 mmol/L (21-32); CHLORIDE 98 mmol/L (98-107); CREATININE 0.8 mg/dL (0.6-1.3); GLUCOSE 284 mg/dL (74-106); POTASSIUM 5.1 mmol/L (3.5-5.1); SODIUM SERUM 132 mmol/L (136-145); UREA NITROGEN, BLOOD 9 mg/dL (7-18)
[2024-06-24 19:15] LABS: AMPHETAMINE, URINE NEGATIVE (NEGATIVE); BARBITURATE, URINE NEGATIVE (NEGATIVE); BENZODIAZEPINE, URINE NEGATIVE (NEGATIVE); CANNABINOID, URINE NEGATIVE (NEGATIVE); COCCAINE, URINE NEGATIVE (NEGATIVE); PHENCYCLIDINE SCREEN,URINE NEGATIVE (NEGATIVE)
[2024-06-24 19:16] LABS: INR 1.11 (0.91-1.10); PARTIAL THROMBOPLASTIN TIME 32.7 SEC (24.3-34.3); PROTHROMBIN TIME 11.7 SECS (9.2-11.1)
[2024-06-24 19:16] LABS: OPIATE, URINE POSITIVE (NEGATIVE)
[2024-06-24 19:17] LABS: APPEARANCE,URINE CLOUDY (CLEAR); BILIRUBIN,URINE NEGATIVE (NEGATIVE); BLOOD, URINE TRACE-INTA Ery/uL (NEGATIVE); COLOR,URINE YELLOW (YELLOW); KETONES,URINE TRACE mg/dL (NEGATIVE); LEUKOCYTE ESTERASE ,URINE 2+ (NEGATIVE); NITRITE, URINE NEGATIVE (NEGATIVE); PH,URINE 8.5 (5.0-8.0); PROTEIN,URINE 2+ mg/dl (NEGATIVE); UGLUCOSE NEGATIVE (NEGATIVE)
[2024-06-24 19:20] LABS: ACETAMINOPHEN 0 ug/ml (10-30); ALANINE AMINOTRANSFERASE 38 U/L (12-78); ALBUMIN 2.7 g/dL (3.4-5.0); ALCOHOL, BLOOD < 3 mg/dL (0-10); ALKALINE PHOSPHATASE 349 U/L (46-116); ASPARTATE AMINOTRANSFERASE 42 U/L (15-37); BILIRUBIN,DIRECT 0.5 mg/dL (0.0-0.2); BILIRUBIN,TOTAL 0.9 mg/dL (0.2-1.0); SALICYLATE 0.3 mg/dL (2.8-20.0); TOTAL PROTEIN, SERUM 8.6 g/dL (6.4-8.2)
[2024-06-24] MEDS: IV NS 0.9% 1,000 ML BAG IV ONE (19:28)
[2024-06-24 19:33] LABS: LACTIC ACID 2.5 mmol/L (0.4-2.0)
[2024-06-24] MEDS ORDERED: SITA100T PO (19:36)
[2024-06-24] MEDS ORDERED: METO25TA6 PO (19:36)
[2024-06-24] MEDS ORDERED: BENZ1LOZ77 PO (19:36)
[2024-06-24] MEDS ORDERED: GUAI5LIQ10 PO (19:36)
[2024-06-24] MEDS ORDERED: MAGN400O6 PO (19:36)
[2024-06-24] MEDS ORDERED: CALC-494 PO (19:36)
[2024-06-24] MEDS ORDERED: PREG200C59 PO (19:36)
[2024-06-24] MEDS ORDERED: SIME125C81 PO (19:36)
[2024-06-24] MEDS ORDERED: METH1TAB PO (19:36)
[2024-06-24] MEDS ORDERED: INSU100I47 SQ (19:36)
[2024-06-24] MEDS ORDERED: HYDR-4303 PO (19:36)
[2024-06-24] MEDS ORDERED: SALI45SP BC (19:36)
[2024-06-24] MEDS ORDERED: IPRA3AMP23 IH (19:36)
[2024-06-24] MEDS ORDERED: AMIN30LI24 PO (19:36)
[2024-06-24] MEDS ORDERED: ALBUTEROL FS 2.5 MG/3 ML VIAL.NEB ONE ×2 (19:47→20:29)
[2024-06-24] MEDS ORDERED: IPRATROPIUM NEB FS 0.5 MG/2.5 ML AMPUL.NEB ONE (19:47)
[2024-06-24] MEDS ORDERED: methylPREDNISolone SOD SUCC 125 MG/2ML VIAL ONE (20:34)
[2024-06-24] MEDS: methylPREDNISolone SOD SUCC 125 MG/2ML VIAL IV ONE (20:38)
[2024-06-24 21:19] LABS: BACTERIA,URINE Many /HPF (None Seen); URINE AMORPHOUS PHOSPHATES Moderate /HPF (None Seen)
[2024-06-24 21:20] LABS: ADD URINE CULTURE YES; CALCIUM PHOSPHATE CRYSTALS,UR Few /HPF (None Seen); SQUAMOUS EPITHELIAL CELL,UR Rare /HPF (None Seen); TRIPLE PHOSPHATE CRYSTAL,UR Few /HPF (None Seen)
[2024-06-24] MEDS ORDERED: ACETAMINOPHEN 325 MG TABLET PO PRN (22:00)
[2024-06-24] MEDS ORDERED: hydrALAZINE HCL IV 20 MG VIAL IV PRN (22:00)
[2024-06-24] MEDS ORDERED: MORPHINE SULFATE INJ 2 MG/ML DISP.SYRIN IV PRN (22:00)
[2024-06-24] MEDS ORDERED: MAG HYDROX/AL HYDROX/SIMETH 30 ML UDC PO PRN (22:00)
[2024-06-24] MEDS ORDERED: MAGNESIUM HYDROXIDE 30 ML UDC PO PRN (22:00)
[2024-06-24] MEDS ORDERED: DEXTROSE 50%-WATER 50 ML DISP.SYRIN IV PRN (22:00)
[2024-06-24] MEDS: LATANOPROST EYE DROP 0.005% 2.5 ML BOTTLE EACHEYE SCH (22:00)
[2024-06-24] MEDS ORDERED: Z GUARD REMEDY 4 OZ OINT TP PRN (22:00)
[2024-06-24 22:19] LABS: ABG OXYGEN SATURATION 95.3 % (94.0-98.0); ABG PCO2 31.7 mmHg (32.0-45.0); ABG PH 7.393 (7.350-7.450); ABG PO2 77.3 mmHg (83.0-108.0); ABG TOTAL HEMOGLOBIN 13.2 G/dL (12.0-16.0); COHb 0.1 % (0.5-1.5); MetHb 0.2 % (0.0-1.5); SITE, ABG LEFT RADIAL
[2024-06-24] MEDS: IV NS 0.9% 1,000 ML IV SCH (22:58)
[2024-06-24] MEDS: BLOOD SUGAR DIAGNOSTIC 1 EACH STRIP VI SCH (23:18)
[2024-06-24] MEDS: ATORVASTATIN 40 MG TABLET PO SCH (23:55)
[2024-06-24] MEDS: DULOXETINE HCL 30 MG CAPSULE.DR PO SCH (23:55)
[2024-06-24] MEDS: NORTRIPTYLINE HCL 25 MG CAPSULE PO SCH (23:56)
[2024-06-24] MEDS: INSULIN GLARGINE, 100 UNIT/ML CARTRIDGE SQ SCH (23:59)
[2024-06-25] VITALS (15 sets, daily range): BP systolic 100–125; BP diastolic 60–71; TEMP 97.5–99.1; O2SAT 91–99
[2024-06-25] MEDS ORDERED: IPRATROPIUM/ALBUTEROL INHALER IH SCH
[2024-06-25] MEDS: *INSULIN REGULAR(HUMULIN R)HUM 100 UNIT/ML VIAL SQ PRN (00:03)
[2024-06-25] MEDS: ALBUTEROL FS 2.5 MG/0.5 ML VIAL.NEB NEB SCH (02:04)
[2024-06-25] MEDS: IPRATROPIUM NEB FS 0.5 MG/2.5 ML AMPUL.NEB IH SCH (02:04)
[2024-06-25] MEDS: PIPERACI/TAZO 3.375GM/D5W 50ML PB IV ONE (03:15)
[2024-06-25] MEDS: ZOSYN IVPB 3.375 G in IV D5W 50ml IV ONE (03:17)
[2024-06-25] MEDS: BRIMONIDINE TARTRATE OPHT SOLN 5 ML BOTTLE LEFTEYE SCH (05:00)
[2024-06-25] MEDS: PREGABALIN 100 MG CAPSULE PO SCH (05:25)
[2024-06-25] MEDS: BACLOFEN (10 MG) 10 MG TABLET PO SCH (05:25)
[2024-06-25 06:38] LABS: BASOPHILS % (AUTO) 0.2 % (0.0-2.0); HEMATOCRIT 35 % (33-45); HEMOGLOBIN 11.7 g/dL (11.5-14.8); LYMPHOCYTES # (AUTO) 0.8 K/uL (0.8-4.8); LYMPHOCYTES % (AUTO) 7.3 % (20.0-44.0); MEAN CORPUSCULAR HEMOGLOBIN 31 PG (26.0-33.0); MEAN CORPUSCULAR HGB CONC 33 g/dl (31.0-36.0); MEAN CORPUSCULAR VOLUME 92 fL (82-100); MONOCYTES # (AUTO) 0.3 K/uL (0.1-1.30); MONOCYTES % (AUTO) 2.5 % (2.0-12.0); NEUTROPHILS # (AUTO) 9.7 K/uL (1.8-8.9); PLATELET COUNT (AUTO) 103 K/uL (150-450); RED BLOOD CELL COUNT(AUTO) 3.83 MIL/uL (4.0-5.2); RED CELL DISTRIBUTION WIDTH 16.7 % (11.5-15.0); WHITE BLOOD COUNT (AUTO) 10.7 K/uL (4.3-11.0)
[2024-06-25] MEDS: INSULIN REGULAR, HUMAN 100 UNIT/ML 3 ML VIAL SQ PRN (06:45)
[2024-06-25 06:58] LABS: ALBUMIN 2.1 g/dL (3.4-5.0); BILIRUBIN,TOTAL 1.3 mg/dL (0.2-1.0); CALCIUM, SERUM 8.3 mg/dL (8.5-10.1); MAGNESIUM 1.7 mg/dL (1.8-2.4); PHOSPHORUS 3.4 mg/dL (2.5-4.9); POTASSIUM 4.5 mmol/L (3.5-5.1); TOTAL PROTEIN, SERUM 6.9 g/dL (6.4-8.2)
[2024-06-25] MEDS: DOCUSATE SODIUM LIQ 100 MG/10 ML UDC PO SCH (08:49)
[2024-06-25] MEDS: VALPROIC ACID 250 MG/5 ML UDC PO SCH (08:49)
[2024-06-25] MEDS: POLYETHYLENE GLYCOL 3350 17 GM POWD.PACK PO SCH (08:49)
[2024-06-25] MEDS: ZOSYN IVPB 3.375 G in IV D5W 50ml IV SCH (08:50)
[2024-06-25] MEDS: METOPROLOL TARTRATE 25 MG TABLET PO SCH (08:58)
[2024-06-25] MEDS: BENAZEPRIL HCL 10 MG TABLET PO SCH (08:59)
[2024-06-25] MEDS: AMLODIPINE BESYLATE 5 MG TABLET PO SCH (08:59)
[2024-06-25] MEDS: HEPARIN SODIUM, PORCINE 5000 UNITS/1 ML VIAL SQ SCH (09:01)
[2024-06-25] MEDS: MAGNESIUM OXIDE 400 MG TABLET PO ONE (11:28)
[2024-06-25] MEDS: methylPREDNISolone SOD SUCC 125 MG/2ML VIAL IV SCH (13:17)
[2024-06-25] MEDS: MONTELUKAST SODIUM (10MG) 10 MG TABLET PO SCH (17:24)
[2024-06-25] MEDS ORDERED: INSULIN GLARGINE, 100 UNIT/ML CARTRIDGE SQ SCH (22:00)
[2024-06-26] VITALS (12 sets, daily range): BP systolic 105–132; BP diastolic 63–75; TEMP 97.7–98.2; O2SAT 94–100
[2024-06-26 07:01] LABS: BASOPHILS % (AUTO) 0.1 % (0.0-2.0); EOSINOPHILS % (AUTO) 0.1 % (0.0-6.0); HEMATOCRIT 35 % (33-45); HEMOGLOBIN 11.7 g/dL (11.5-14.8); LYMPHOCYTES # (AUTO) 0.6 K/uL (0.8-4.8); LYMPHOCYTES % (AUTO) 6.3 % (20.0-44.0); MEAN CORPUSCULAR HEMOGLOBIN 31 PG (26.0-33.0); MEAN CORPUSCULAR HGB CONC 33 g/dl (31.0-36.0); MEAN CORPUSCULAR VOLUME 92 fL (82-100); MONOCYTES # (AUTO) 0.4 K/uL (0.1-1.30); MONOCYTES % (AUTO) 4.5 % (2.0-12.0); NEUTROPHILS # (AUTO) 8.3 K/uL (1.8-8.9); PLATELET COUNT (AUTO) 117 K/uL (150-450); RED BLOOD CELL COUNT(AUTO) 3.85 MIL/uL (4.0-5.2); RED CELL DISTRIBUTION WIDTH 16.8 % (11.5-15.0); WHITE BLOOD COUNT (AUTO) 9.3 K/uL (4.3-11.0)
[2024-06-26 07:12] LABS: CALCIUM, SERUM 9.2 mg/dL (8.5-10.1); CREATININE 0.9 mg/dL (0.6-1.3); POTASSIUM 4.3 mmol/L (3.5-5.1)
[2024-06-26] MEDS ORDERED: FLUT1BLS6 IH (10:30)
[2024-06-26] MEDS: INSULIN GLARGINE, 100 UNIT/ML CARTRIDGE SQ SCH (10:46)
[2024-06-26] MEDS: LACTULOSE 10 G/15 ML UDC (PYXIS) PO ONE (12:28)
[2024-06-26] MEDS ORDERED: DEXTROSE 50%-WATER 50 ML DISP.SYRIN IV PRN (18:00)
[2024-06-26] MEDS: PANTOPRAZOLE 40 MG TABLET.DR PO SCH (20:16)
[2024-06-26] MEDS: BLOOD SUGAR DIAGNOSTIC 1 EACH STRIP IN SCH (21:32)
[2024-06-26] MEDS: *INSULIN REGULAR(HUMULIN R)HUM 100 UNIT/ML VIAL SQ PRN (21:37)
[2024-06-26] MEDS: INSULIN REGULAR, HUMAN 100 UNIT/ML 3 ML VIAL SQ ONE (22:47)
[2024-06-27] VITALS (11 sets, daily range): BP systolic 108–148; BP diastolic 68–85; TEMP 97.3–98.1; O2SAT 96–100
[2024-06-27] MEDS: INSULIN REGULAR, HUMAN 100 UNIT/ML 3 ML VIAL SQ PRN (06:33)
[2024-06-27 06:42] LABS: BASOPHILS % (AUTO) 0.2 % (0.0-2.0); EOSINOPHILS % (AUTO) 0.1 % (0.0-6.0); HEMATOCRIT 34 % (33-45); HEMOGLOBIN 11.3 g/dL (11.5-14.8); LYMPHOCYTES # (AUTO) 0.4 K/uL (0.8-4.8); LYMPHOCYTES % (AUTO) 6.2 % (20.0-44.0); MEAN CORPUSCULAR HEMOGLOBIN 30 PG (26.0-33.0); MEAN CORPUSCULAR HGB CONC 33 g/dl (31.0-36.0); MEAN CORPUSCULAR VOLUME 91 fL (82-100); MONOCYTES # (AUTO) 0.3 K/uL (0.1-1.30); MONOCYTES % (AUTO) 5.2 % (2.0-12.0); NEUTROPHILS # (AUTO) 5.8 K/uL (1.8-8.9); NEUTROPHILS % (AUTO) 88.3 % (43.0-81.0); PLATELET COUNT (AUTO) 122 K/uL (150-450); RED BLOOD CELL COUNT(AUTO) 3.79 MIL/uL (4.0-5.2); RED CELL DISTRIBUTION WIDTH 16.5 % (11.5-15.0); WHITE BLOOD COUNT (AUTO) 6.5 K/uL (4.3-11.0)
[2024-06-27 06:52] LABS: CALCIUM, SERUM 8.8 mg/dL (8.5-10.1); CREATININE 0.8 mg/dL (0.6-1.3); POTASSIUM 4.4 mmol/L (3.5-5.1)
[2024-06-27] MEDS: INSULIN GLARGINE, 100 UNIT/ML CARTRIDGE SQ SCH (21:33)
[2024-06-28] VITALS (11 sets, daily range): BP systolic 125–139; BP diastolic 74–81; TEMP 97.7–98; O2SAT 96–100
[2024-06-28 06:56] LABS: BASOPHILS % (AUTO) 0.1 % (0.0-2.0); HEMATOCRIT 35 % (33-45); HEMOGLOBIN 11.8 g/dL (11.5-14.8); LYMPHOCYTES # (AUTO) 0.5 K/uL (0.8-4.8); MEAN CORPUSCULAR HEMOGLOBIN 30 PG (26.0-33.0); MEAN CORPUSCULAR HGB CONC 34 g/dl (31.0-36.0); MEAN CORPUSCULAR VOLUME 90 fL (82-100); MONOCYTES # (AUTO) 0.2 K/uL (0.1-1.30); MONOCYTES % (AUTO) 5.1 % (2.0-12.0); NEUTROPHILS # (AUTO) 4.1 K/uL (1.8-8.9); NEUTROPHILS % (AUTO) 84.8 % (43.0-81.0); PLATELET COUNT (AUTO) 120 K/uL (150-450); RED CELL DISTRIBUTION WIDTH 16.2 % (11.5-15.0); WHITE BLOOD COUNT (AUTO) 4.8 K/uL (4.3-11.0)
[2024-06-28 07:33] LABS: CALCIUM, SERUM 9.1 mg/dL (8.5-10.1); CREATININE 0.6 mg/dL (0.6-1.3); POTASSIUM 4.2 mmol/L (3.5-5.1)
[2024-06-28] MEDS: PROSOURCE / PROSTAT (PYXIS) 30 ML UDC PO SCH (09:17)
[2024-06-28] MEDS: ARGININE/GLUTAMINE/CALCIUM BMB 1 EACH POWD.PACK PO SCH (09:17)
[2024-06-28] MEDS: methylPREDNISolone SOD SUCC 125 MG/2ML VIAL IV SCH (21:08)
[2024-06-28] MEDS: INSULIN GLARGINE, 100 UNIT/ML CARTRIDGE SQ SCH (21:31)
[2024-06-29] VITALS (7 sets, daily range): BP systolic 127–148; BP diastolic 71–88; TEMP 97.7–98.1; O2SAT 95–100
[2024-06-29 07:26] LABS: BASOPHILS % (AUTO) 0.1 % (0.0-2.0); HEMATOCRIT 38 % (33-45); HEMOGLOBIN 12.6 g/dL (11.5-14.8); LYMPHOCYTES # (AUTO) 0.6 K/uL (0.8-4.8); LYMPHOCYTES % (AUTO) 10.7 % (20.0-44.0); MEAN CORPUSCULAR HEMOGLOBIN 30 PG (26.0-33.0); MEAN CORPUSCULAR HGB CONC 34 g/dl (31.0-36.0); MEAN CORPUSCULAR VOLUME 89 fL (82-100); MONOCYTES # (AUTO) 0.3 K/uL (0.1-1.30); MONOCYTES % (AUTO) 5.4 % (2.0-12.0); NEUTROPHILS # (AUTO) 4.6 K/uL (1.8-8.9); NEUTROPHILS % (AUTO) 83.8 % (43.0-81.0); PLATELET COUNT (AUTO) 137 K/uL (150-450); RED BLOOD CELL COUNT(AUTO) 4.21 MIL/uL (4.0-5.2); WHITE BLOOD COUNT (AUTO) 5.4 K/uL (4.3-11.0)
[2024-06-29 08:12] LABS: CALCIUM, SERUM 9.1 mg/dL (8.5-10.1); CREATININE 0.6 mg/dL (0.6-1.3); POTASSIUM 4.1 mmol/L (3.5-5.1)
[2024-06-29 10:20] LABS: ANISOCYTOSIS 1+; BAND % (MANUAL) 1 % (0.0-5.0); LYMPHOCYTES % (MANUAL) 8 % (16-48); MONOCYTES % (MANUAL) 1 % (0-11.0); MYELOCYTES % 1 % (0-0); NEUTROPHILS % (MANUAL) 89 (42-76); PLATELET ESTIMATE DECREASED
[2024-06-29] MEDS: MEROPENEM 1 G in IV NS 0.9% 100 ML IV SCH (14:56)
[2024-06-29] MEDS: diphenhydrAMINE HCL 50 MG/ML VIAL IV ONE (17:19)
[2024-06-30] VITALS (7 sets, daily range): BP systolic 137–156; BP diastolic 83–90; TEMP 98.2–98.6; O2SAT 94–99
[2024-06-30 06:23] LABS: BASOPHILS % (AUTO) 0.1 % (0.0-2.0); HEMATOCRIT 38 % (33-45); LYMPHOCYTES # (AUTO) 1.7 K/uL (0.8-4.8); LYMPHOCYTES % (AUTO) 19.5 % (20.0-44.0); MEAN CORPUSCULAR HEMOGLOBIN 31 PG (26.0-33.0); MEAN CORPUSCULAR HGB CONC 34 g/dl (31.0-36.0); MEAN CORPUSCULAR VOLUME 89 fL (82-100); MONOCYTES # (AUTO) 0.9 K/uL (0.1-1.30); NEUTROPHILS # (AUTO) 6.2 K/uL (1.8-8.9); NEUTROPHILS % (AUTO) 70.4 % (43.0-81.0); PLATELET COUNT (AUTO) 163 K/uL (150-450); RED BLOOD CELL COUNT(AUTO) 4.26 MIL/uL (4.0-5.2); RED CELL DISTRIBUTION WIDTH 16.6 % (11.5-15.0); WHITE BLOOD COUNT (AUTO) 8.9 K/uL (4.3-11.0)
[2024-06-30 06:42] LABS: CALCIUM, SERUM 9.2 mg/dL (8.5-10.1); CREATININE 0.8 mg/dL (0.6-1.3); POTASSIUM 3.8 mmol/L (3.5-5.1)
[2024-06-30] MEDS: methylPREDNISolone SOD SUCC 125 MG/2ML VIAL IV SCH (09:10)
[2024-06-30 09:47] LABS: LYMPHOCYTES % (MANUAL) 23 % (16-48); MONOCYTES % (MANUAL) 9 % (0-11.0); NEUTROPHILS % (MANUAL) 68 (42-76)
[2024-06-30 09:48] LABS: PLATELET ESTIMATE ADEQUATE
[2024-06-30] MEDS: ALBUTEROL FS 2.5 MG/0.5 ML VIAL.NEB NEB PRN (22:33)
[2024-07-01] VITALS (7 sets, daily range): BP systolic 129–136; BP diastolic 73–89; TEMP 97.5–98.4; O2SAT 95–99
[2024-07-01] MEDS ORDERED: PRED20TA PO (11:09)
[2024-07-01] MEDS ORDERED: PANT40TA49 PO (11:09)
[2024-07-01] MEDS ORDERED: ALBU2.5V13 NEB ×2 (11:09)
[2024-07-01] MEDS ORDERED: INSU100V28 SQ (11:09)
[2024-07-01] MEDS ORDERED: DOCU50LI PO (11:09)
[2024-07-01] MEDS ORDERED: Prosource PO (11:09)
[2024-07-01] MEDS ORDERED: *INS REG3 SQ (11:09)
[2024-07-01] MEDS ORDERED: Blood Sugar Diagnostic IN (11:09)
[2024-07-01] MEDS ORDERED: MERO1PIG IV (11:09)
[2024-07-01] MEDS ORDERED: NUTR1PAC14 PO (11:09)
[2024-07-01] MEDS ORDERED: Insulin Glargine,Hum SQ (11:09)
[2024-07-01] MEDS ORDERED: POLY17PO29 PO (11:09)
[2024-07-01] MEDS ORDERED: IPRA0.2S9 IH (11:09)
[2024-07-01 18:21] LABS: BASOPHILS % (AUTO) 0.1 % (0.0-2.0); EOSINOPHILS # (AUTO) 0.2 K/uL (0.0-0.7); EOSINOPHILS % (AUTO) 2.2 % (0.0-6.0); HEMATOCRIT 39 % (33-45); LYMPHOCYTES # (AUTO) 1.4 K/uL (0.8-4.8); LYMPHOCYTES % (AUTO) 16.2 % (20.0-44.0); MEAN CORPUSCULAR HEMOGLOBIN 30 PG (26.0-33.0); MEAN CORPUSCULAR HGB CONC 34 g/dl (31.0-36.0); MEAN CORPUSCULAR VOLUME 88 fL (82-100); MONOCYTES # (AUTO) 0.6 K/uL (0.1-1.30); NEUTROPHILS # (AUTO) 6.5 K/uL (1.8-8.9); NEUTROPHILS % (AUTO) 74.5 % (43.0-81.0); PLATELET COUNT (AUTO) 151 K/uL (150-450); RED BLOOD CELL COUNT(AUTO) 4.37 MIL/uL (4.0-5.2); RED CELL DISTRIBUTION WIDTH 16.5 % (11.5-15.0); WHITE BLOOD COUNT (AUTO) 8.7 K/uL (4.3-11.0)
[2024-07-01 18:33] LABS: CALCIUM, SERUM 8.9 mg/dL (8.5-10.1); CREATININE 0.5 mg/dL (0.6-1.3)
[2024-07-02 06:54] LABS: BASOPHILS % (AUTO) 0.1 % (0.0-2.0); EOSINOPHILS # (AUTO) 0.2 K/uL (0.0-0.7); EOSINOPHILS % (AUTO) 2.2 % (0.0-6.0); HEMATOCRIT 40 % (33-45); HEMOGLOBIN 13.3 g/dL (11.5-14.8); LYMPHOCYTES # (AUTO) 1.3 K/uL (0.8-4.8); LYMPHOCYTES % (AUTO) 16.2 % (20.0-44.0); MEAN CORPUSCULAR HEMOGLOBIN 30 PG (26.0-33.0); MEAN CORPUSCULAR HGB CONC 34 g/dl (31.0-36.0); MEAN CORPUSCULAR VOLUME 88 fL (82-100); MONOCYTES # (AUTO) 0.6 K/uL (0.1-1.30); MONOCYTES % (AUTO) 6.9 % (2.0-12.0); NEUTROPHILS # (AUTO) 6.1 K/uL (1.8-8.9); NEUTROPHILS % (AUTO) 74.6 % (43.0-81.0); PLATELET COUNT (AUTO) 149 K/uL (150-450); RED CELL DISTRIBUTION WIDTH 16.5 % (11.5-15.0); WHITE BLOOD COUNT (AUTO) 8.2 K/uL (4.3-11.0)
[2024-07-02 07:00] VITALS: BP 122/78; TEMP 98.1; O2SAT 95
[2024-07-02 07:18] LABS: CALCIUM, SERUM 8.8 mg/dL (8.5-10.1); CREATININE 0.4 mg/dL (0.6-1.3); POTASSIUM 3.5 mmol/L (3.5-5.1)
[2024-07-02 07:27] VITALS: O2SAT 98
[2024-07-02 11:06] VITALS: BP 122/78; TEMP 98.1; O2SAT 95
[2024-07-02 13:29] VITALS: O2SAT 98
[2024-07-02 16:00] VITALS: BP 112/75; TEMP 97.5; O2SAT 97
[2024-07-02 20:00] VITALS: BP 124/77; TEMP 97.5; O2SAT 96
[2024-07-03 07:00] VITALS: BP 141/83; TEMP 97.7; O2SAT 96
[2024-07-03 08:34] VITALS: O2SAT 94
[2024-07-03 10:03] VITALS: BP 138/75; TEMP 97.3; O2SAT 96
[2024-07-03] MEDS ORDERED: MERO1PIG IV (10:17)
== END 2024-07-03 15:56 | DRG 720 ==
LOC: ER 18:09 → TELE 20:56 → MED 06-27 15:49
PROVIDERS: ADMIT Internal Medicine; ATTEND Nurse Practitioner Acute Care
DX: A41.51 Sepsis due to Escherichia coli [E. coli] (principal); J96.20 Acute and chronic respiratory failure, unspecified whether with hypoxia or hypercapnia; G93.41 Metabolic encephalopathy; E44.0 Moderate protein-calorie malnutrition; N39.0 Urinary tract infection, site not specified; N31.9 Neuromuscular dysfunction of bladder, unspecified; J44.1 Chronic obstructive pulmonary disease with (acute) exacerbation; E11.40 Type 2 diabetes mellitus with diabetic neuropathy, unspecified; E11.65 Type 2 diabetes mellitus with hyperglycemia; E66.9 Obesity, unspecified; E78.5 Hyperlipidemia, unspecified; E88.09 Other disorders of plasma-protein metabolism, not elsewhere classified; Z79.4 Long term (current) use of insulin; Z79.84 Long term (current) use of oral hypoglycemic drugs; Z88.2 Allergy status to sulfonamides; Z68.41 Body mass index [BMI] 40.0-44.9, adult; G40.909 Epilepsy, unspecified, not intractable, without status epilepticus; K59.00 Constipation, unspecified; I11.9 Hypertensive heart disease without heart failure; R65.20 Severe sepsis without septic shock; R74.01 Elevation of levels of liver transaminase levels
CPT/HCPCS: 36415; 36600; 70450-TC; 71045-TC; 71250-TC; 80048-TC; 80053-TC; 80076-TC; 81001; 82140-TC; 82803-TC; 82962-TC; 83605-TC; 83735-TC; 84100-TC; 84443-TC; 84484-TC; 85025-TC; 85730-TC; 87040-TC; 87186-TC; 92526; 92611-TC; 94760-TC; 94761-TC; 94799-TC; 97110-TC; 97530-TC; A4223; G0378; G0480; J0692; J1200; J1644; J1815; J2185; J2543; J2919; J3370; J7030; J7040; J7050; J7060

== ENCOUNTER 2024-10-26 14:53 | Inpatient (IN) | payer OTHER ==
[~2024-10-26] VITALS: Ht 167.6 cm; Wt 116.1 kg
[~2024-10-26 14:53] MED LIST changes: +*INS REG3 SQ; +ALBU2.5V13 NEB; +AMIN30LI24 PO; +BENZ1LOZ77 PO; +Blood Sugar Diagnostic IN; +CALC-494 PO; +DOCU50LI PO; -FLUT16SP; +FLUT16SP BNOSTRILS; +FLUT1BLS6 IH; -FLUT1DIS INH; -GUAI100S11 PO; +GUAI5LIQ10 PO; +INSU100V28 SQ; -INSU100V39 SQ; -INSU100V7 SQ; +IPRA0.2S9 IH; +IPRA3AMP23 IH; +Insulin Glargine,Hum SQ; -LOPE2TAB25 PO; +MAGN400O6 PO; +MERO1PIG IV; -METH4TAB17 PO; +METO25TA6 PO; -NA P133E RC; -NITR100C6 PO; +NUTR1PAC14 PO; -ONDA4TAB5 PO; -OXYB-58 PO; +PANT40TA49 PO; +POLY17PO29 PO; +PRED20TA PO; -PREG150C PO; +Prosource PO; +SALI45SP BC; +SIME125C81 PO; +SITA100T PO
[2024-10-26] MEDS: IV NS 0.9% 1,000 ML BAG IV ONE (15:17)
[2024-10-26 15:29] LABS: APPEARANCE,URINE CLOUDY (CLEAR); BILIRUBIN,URINE NEGATIVE (NEGATIVE); BLOOD, URINE TRACE-INTA Ery/uL (NEGATIVE); COLOR,URINE YELLOW (YELLOW); KETONES,URINE 1+ mg/dL (NEGATIVE); LEUKOCYTE ESTERASE ,URINE 3+ (NEGATIVE); NITRITE, URINE POSITIVE (NEGATIVE); PH,URINE 8.5 (5.0-8.0); PROTEIN,URINE 1+ mg/dl (NEGATIVE); UGLUCOSE NEGATIVE (NEGATIVE)
[2024-10-26] MEDS ORDERED: ACETAMINOPHEN ES 500 MG TABLET ONE (15:31)
[2024-10-26] MEDS: CEFEPIME 1 GM in IV D5W 50 ML IV ONE (15:33)
[2024-10-26] MEDS: ACETAMINOPHEN ES 500 MG TABLET PO ONE (15:43)
[2024-10-26] MEDS: ACETAMINOPHEN 650 MG/SUPP.RECT RC ONE (15:44)
[2024-10-26 15:47] LABS: BILIRUBIN,DIRECT 0.3 mg/dL (0.0-0.2); BILIRUBIN,TOTAL 0.8 mg/dL (0.2-1.0); CALCIUM, SERUM 9.1 mg/dL (8.5-10.1); CREATININE 0.7 mg/dL (0.6-1.3); TOTAL PROTEIN, SERUM 8.7 g/dL (6.4-8.2)
[2024-10-26 15:48] LABS: BASOPHILS % (AUTO) 0.6 % (0.0-2.0); EOSINOPHILS % (AUTO) 0.5 % (0.0-6.0); HEMATOCRIT 42 % (33-45); HEMOGLOBIN 14.1 g/dL (11.5-14.8); LYMPHOCYTES # (AUTO) 0.7 K/uL (0.8-4.8); MEAN CORPUSCULAR HEMOGLOBIN 30 PG (26.0-33.0); MEAN CORPUSCULAR HGB CONC 34 g/dl (31.0-36.0); MEAN CORPUSCULAR VOLUME 89 fL (82-100); MONOCYTES # (AUTO) 0.7 K/uL (0.1-1.30); MONOCYTES % (AUTO) 8.9 % (2.0-12.0); NEUTROPHILS # (AUTO) 6.6 K/uL (1.8-8.9); PLATELET COUNT (AUTO) 146 K/uL (150-450); RED BLOOD CELL COUNT(AUTO) 4.68 MIL/uL (4.0-5.2); RED CELL DISTRIBUTION WIDTH 16.6 % (11.5-15.0); WHITE BLOOD COUNT (AUTO) 8.2 K/uL (4.3-11.0)
[2024-10-26 15:50] LABS: LACTIC ACID 1.8 mmol/L (0.4-2.0)
[2024-10-26 15:56] LABS: INR 1.08 (0.91-1.10); PARTIAL THROMBOPLASTIN TIME 31.2 SEC (24.3-34.3); PROTHROMBIN TIME 11.4 SECS (9.2-11.1)
[2024-10-26] MEDS ORDERED: METH1TAB PO (16:16)
[2024-10-26] MEDS ORDERED: FLUT100B3 IH (16:16)
[2024-10-26] MEDS ORDERED: LIDO120C7 TP (16:16)
[2024-10-26] MEDS ORDERED: UMEC1BLS INH (16:16)
[2024-10-26] MEDS ORDERED: ONDA4TAB5 PO (16:16)
[2024-10-26] MEDS ORDERED: INSU100V7 SQ (16:16)
[2024-10-26] MEDS ORDERED: SALI45SP MM (16:16)
[2024-10-26] MEDS ORDERED: NA P133E RC (16:16)
[2024-10-26] MEDS ORDERED: PREG200C PO (16:16)
[2024-10-26] MEDS ORDERED: INSU100V28 SQ (16:16)
[2024-10-26] MEDS ORDERED: MAGN200T4 PO (16:16)
[2024-10-26 16:35] LABS: WBC,URINE 51-80 /HPF (0-3)
[2024-10-26 16:36] LABS: ADD URINE CULTURE YES; BACTERIA,URINE 3+ /HPF (None Seen); MUCUS,URINE Moderate /LPF (None Seen)
[2024-10-26] MEDS ORDERED: Medication Not On Formulary EA (Ipratropium/Albuterol Sulfate (Duoneb 2.5-0.5 Mg/3 Ml So IH PRN (19:30)
[2024-10-26] MEDS ORDERED: MAG HYDROX/AL HYDROX/SIMETH 30 ML UDC PO PRN (19:30)
[2024-10-26] MEDS ORDERED: MAGNESIUM HYDROXIDE 30 ML UDC PO PRN (19:30)
[2024-10-26] MEDS ORDERED: Z GUARD REMEDY 4 OZ OINT TP PRN (19:30)
[2024-10-26] MEDS ORDERED: BISACODYL SUPP (10 MG) 10 MG/SUPP.RECT SUPP.RECT RC PRN (19:30)
[2024-10-26] MEDS ORDERED: NA PHOS,M-B/NA PHOS,DI-BA 1 EA ENEMA RC PRN (19:30)
[2024-10-26] MEDS ORDERED: ONDANSETRON HCL/PF 4 MG/2 ML VIAL IVP PRN (19:30)
[2024-10-26] MEDS: IV NS 0.9% 1,000 ML IV SCH (19:46)
[2024-10-26] MEDS ORDERED: ALBUTEROL FS 2.5 MG/0.5 ML VIAL.NEB NEB PRN (20:30)
[2024-10-26] MEDS ORDERED: POLYVINYL ALCOHOL 15 ML BOTTLE OP PRN ×2 (20:30)
[2024-10-26] MEDS ORDERED: IPRATROPIUM NEB FS 0.5 MG/2.5 ML AMPUL.NEB NEB PRN ×2 (20:30→21:30)
[2024-10-26] MEDS ORDERED: SIMETHICONE SUSP 40 MG/0.6 ML BOTTLE PO PRN (20:30)
[2024-10-26] MEDS: BRIMONIDINE TARTRATE OPHT SOLN 5 ML BOTTLE OP SCH (21:00)
[2024-10-26] MEDS ORDERED: ALBUTEROL FS 2.5 MG/3 ML VIAL.NEB NEB PRN (21:30)
[2024-10-26] MEDS ORDERED: DEXTROSE 50%-WATER 50 ML DISP.SYRIN IV PRN (21:30)
[2024-10-26] MEDS: LATANOPROST EYE DROP 0.005% 2.5 ML BOTTLE EACHEYE SCH (22:00)
[2024-10-26] MEDS: BLOOD SUGAR DIAGNOSTIC 1 EACH STRIP IN SCH (22:00)
[2024-10-26] MEDS ORDERED: DULOXETINE HCL 20 MG CAPSULE.DR PO SCH (22:00)
[2024-10-26] MEDS: BACLOFEN (10 MG) 10 MG TABLET PO SCH (23:45)
[2024-10-26] MEDS: DULOXETINE HCL 30 MG CAPSULE.DR PO SCH (23:45)
[2024-10-26] MEDS: ENOXAPARIN SODIUM 40 MG/0.4 ML DISP.SYRIN SQ SCH (23:45)
[2024-10-26] MEDS: ATORVASTATIN 40 MG TABLET PO SCH (23:46)
[2024-10-26] MEDS: NORTRIPTYLINE HCL 25 MG CAPSULE PO SCH (23:46)
[2024-10-27] VITALS: BP 100/60; O2SAT 98
[2024-10-27] MEDS: ACETAMINOPHEN 325 MG TABLET PO PRN (02:47)
[2024-10-27 04:00] VITALS: BP 103/64; O2SAT 98
[2024-10-27 07:01] LABS: CREATININE 0.6 mg/dL (0.6-1.3); MAGNESIUM 1.8 mg/dL (1.8-2.4); PHOSPHORUS 2.8 mg/dL (2.5-4.9); POTASSIUM 3.5 mmol/L (3.5-5.1)
[2024-10-27 07:40] LABS: BASOPHILS % (AUTO) 0.8 % (0.0-2.0); EOSINOPHILS % (AUTO) 0.7 % (0.0-6.0); HEMATOCRIT 37 % (33-45); HEMOGLOBIN 12.1 g/dL (11.5-14.8); LYMPHOCYTES # (AUTO) 0.9 K/uL (0.8-4.8); LYMPHOCYTES % (AUTO) 15.9 % (20.0-44.0); MEAN CORPUSCULAR HEMOGLOBIN 29 PG (26.0-33.0); MEAN CORPUSCULAR HGB CONC 33 g/dl (31.0-36.0); MEAN CORPUSCULAR VOLUME 90 fL (82-100); MONOCYTES # (AUTO) 0.8 K/uL (0.1-1.30); MONOCYTES % (AUTO) 14.5 % (2.0-12.0); NEUTROPHILS # (AUTO) 3.9 K/uL (1.8-8.9); NEUTROPHILS % (AUTO) 68.1 % (43.0-81.0); PLATELET COUNT (AUTO) 110 K/uL (150-450); RED BLOOD CELL COUNT(AUTO) 4.14 MIL/uL (4.0-5.2); RED CELL DISTRIBUTION WIDTH 16.8 % (11.5-15.0); WHITE BLOOD COUNT (AUTO) 5.7 K/uL (4.3-11.0)
[2024-10-27 08:00] VITALS: BP 136/82; TEMP 97.3; O2SAT 98
[2024-10-27] MEDS: CEFEPIME 1 GM in IV D5W 50 ML IV SCH (08:31)
[2024-10-27] MEDS: PANTOPRAZOLE 40 MG TABLET.DR PO SCH (08:31)
[2024-10-27] MEDS: FLUTICASONE PROPIONATE 16 GM BOTTLE NS SCH (08:33)
[2024-10-27] MEDS: DORZOLAMIDE OPTH 2% 10 ML BOTTLE EACHEYE SCH (08:33)
[2024-10-27] MEDS: TIMOLOL 0.5% SOLN OPHTH 5 ML BOTTLE OP SCH (08:33)
[2024-10-27] MEDS ORDERED: Medication Not On Formulary EA (Umeclidinium Brm/Vilanterol Tr (Anoro Ellipta 62.5-25 Mc INH SCH (09:00)
[2024-10-27] MEDS: BENAZEPRIL HCL 5 MG TABLET PO SCH (09:00)
[2024-10-27] MEDS ORDERED: Medication Not On Formulary EA (Pregabalin (Lyrica) 200 MG) PO SCH (09:00)
[2024-10-27] MEDS ORDERED: Medication Not On Formulary EA (Ketotifen Fumarate (Alaway) 1 DROP) EACHEYE SCH (09:00)
[2024-10-27] MEDS ORDERED: BENAZEPRIL HCL 20 MG TABLET PO SCH (09:00)
[2024-10-27] MEDS ORDERED: TIMOLOL 0.25% SOL OPHTH 10 ML BOTTLE OP SCH (09:00)
[2024-10-27] MEDS ORDERED: Medication Not On Formulary EA (Multivitamin With Minerals (One Daily Complete) 1 EACH) PO SCH (09:00)
[2024-10-27] MEDS ORDERED: Medication Not On Formulary EA (Sitagliptin Phosphate (Januvia) 100 MG) PO SCH (09:00)
[2024-10-27] MEDS: PREGABALIN 100 MG CAPSULE PO SCH (09:40)
[2024-10-27] MEDS: MULTIVIT W/MINERALS 1 TAB TABLET PO SCH (09:40)
[2024-10-27] MEDS: VALPROIC ACID 250 MG/5 ML UDC PO SCH (09:40)
[2024-10-27] MEDS: AMLODIPINE BESYLATE 5 MG TABLET PO SCH (09:40)
[2024-10-27] MEDS: ASCORBIC ACID 500 MG TABLET PO SCH (09:40)
[2024-10-27] MEDS: LINAGLIPTIN 5 MG TABLET PO SCH (09:40)
[2024-10-27] MEDS: DOCUSATE SODIUM 100 MG CAPSULE PO SCH (09:40)
[2024-10-27] MEDS: SENNOSIDES 8.6 MG TABLET PO SCH (09:40)
[2024-10-27] MEDS: METOPROLOL TARTRATE 25 MG TABLET PO SCH (09:41)
[2024-10-27] MEDS: CHOLECALCIFEROL 1,000 UNIT TABLET (VIT D3) PO SCH (09:41)
[2024-10-27] MEDS: INSULIN REGULAR, HUMAN 100 UNIT/ML 3 ML VIAL SQ PRN (11:26)
[2024-10-27 12:00] VITALS: BP 123/69; TEMP 98.2; O2SAT 99
[2024-10-27 16:00] VITALS: BP 125/73; TEMP 99.3; O2SAT 96
[2024-10-27] MEDS: MONTELUKAST SODIUM (10MG) 10 MG TABLET PO SCH (17:19)
[2024-10-27] MEDS: AMLODIPINE BESYLATE 2.5 MG TABLET PO SCH (17:19)
[2024-10-27 20:00] VITALS: BP 130/81; TEMP 99.7; O2SAT 98
[2024-10-27] MEDS: INSULIN GLARGINE, 100 UNIT/ML CARTRIDGE SQ SCH (21:37)
[2024-10-28] VITALS: BP 111/56; TEMP 98.4; O2SAT 98
[2024-10-28 04:00] VITALS: BP 103/68; TEMP 98.2; O2SAT 96
[2024-10-28 07:07] LABS: BASOPHILS % (AUTO) 0.6 % (0.0-2.0); EOSINOPHILS # (AUTO) 0.1 K/uL (0.0-0.7); EOSINOPHILS % (AUTO) 1.4 % (0.0-6.0); HEMATOCRIT 37 % (33-45); HEMOGLOBIN 12.3 g/dL (11.5-14.8); LYMPHOCYTES # (AUTO) 1.6 K/uL (0.8-4.8); LYMPHOCYTES % (AUTO) 28.5 % (20.0-44.0); MEAN CORPUSCULAR HEMOGLOBIN 30 PG (26.0-33.0); MEAN CORPUSCULAR HGB CONC 33 g/dl (31.0-36.0); MEAN CORPUSCULAR VOLUME 91 fL (82-100); MONOCYTES # (AUTO) 0.9 K/uL (0.1-1.30); MONOCYTES % (AUTO) 15.9 % (2.0-12.0); NEUTROPHILS % (AUTO) 53.6 % (43.0-81.0); PLATELET COUNT (AUTO) 98 K/uL (150-450); WHITE BLOOD COUNT (AUTO) 5.7 K/uL (4.3-11.0)
[2024-10-28 07:25] LABS: ALBUMIN 2.4 g/dL (3.4-5.0); BILIRUBIN,TOTAL 0.6 mg/dL (0.2-1.0); CALCIUM, SERUM 8.4 mg/dL (8.5-10.1); CREATININE 0.6 mg/dL (0.6-1.3); MAGNESIUM 2.2 mg/dL (1.8-2.4); PHOSPHORUS 2.7 mg/dL (2.5-4.9); POTASSIUM 3.6 mmol/L (3.5-5.1); TOTAL PROTEIN, SERUM 7.4 g/dL (6.4-8.2)
[2024-10-28 08:00] VITALS: BP 108/62; TEMP 98.1; O2SAT 96
[2024-10-28] MEDS ORDERED: IV NS 0.9% 1,000 ML IV PRN (09:59)
[2024-10-28 12:00] VITALS: BP 115/73; TEMP 97.9; O2SAT 96
[2024-10-28] MEDS ORDERED: IV NS 0.9% 1,000 ML BAG IV PRN (14:00)
[2024-10-28] MEDS ORDERED: DEXTROSE 50%-WATER 50 ML DISP.SYRIN IV PRN (14:30)
[2024-10-28 15:16] LABS: LYMPHOCYTES % (MANUAL) 29 % (16-48); MONOCYTES % (MANUAL) 16 % (0-11.0); NEUTROPHILS % (MANUAL) 55 (42-76); PLATELET ESTIMATE DECREASED
[2024-10-28 16:00] VITALS: BP 130/80; TEMP 98.1; O2SAT 96
[2024-10-28] MEDS ORDERED: CLOTRIMAZOLE 1% 15 GM TUBE TP SCH (17:00)
[2024-10-28] MEDS: CLOTRIMAZOLE/BETAMETASONE DIPROPIONATE 15 GM TUBE TP SCH (18:00)
[2024-10-28] MEDS: BLOOD SUGAR DIAGNOSTIC 1 EACH STRIP IN SCH (18:07)
[2024-10-28] MEDS: INSULIN REGULAR, HUMAN 100 UNIT/ML 3 ML VIAL SQ PRN (18:08)
[2024-10-28] MEDS: MONTELUKAST SODIUM (10MG) 10 MG TABLET PO SCH (18:11)
[2024-10-28] MEDS: AMLODIPINE BESYLATE 2.5 MG TABLET PO SCH (18:12)
[2024-10-28 20:00] VITALS: BP 111/74; TEMP 98; O2SAT 96
[2024-10-28] MEDS: INSULIN GLARGINE, 100 UNIT/ML CARTRIDGE SQ SCH (21:52)
[2024-10-29] VITALS: BP 123/76; TEMP 98.2; O2SAT 97
[2024-10-29 04:00] VITALS: BP 119/74; TEMP 98.4; O2SAT 98
[2024-10-29 08:00] VITALS: BP 133/80; TEMP 98.1; O2SAT 98
[2024-10-29] MEDS: ACETAMINOPHEN 325 MG TABLET PO PRN (10:11)
[2024-10-29 12:00] VITALS: BP 121/67; TEMP 97.9; O2SAT 95
[2024-10-29] MEDS: MEROPENEM 1 G in IV NS 0.9% 100 ML IV SCH (12:29)
== END 2024-10-29 14:23 | DRG 466 ==
LOC: ER 14:55 → TELE1 15:00 → UNDOADMIN 20:05 → ER 21:00
DX: T83.510A Infection and inflammatory reaction due to cystostomy catheter, initial encounter (principal); A41.9 Sepsis, unspecified organism; G93.41 Metabolic encephalopathy; E44.1 Mild protein-calorie malnutrition; N39.0 Urinary tract infection, site not specified; Y84.6 Urinary catheterization as the cause of abnormal reaction of the patient, or of later complication, without mention of misadventure at the time of the procedure; E66.01 Morbid (severe) obesity due to excess calories; E78.5 Hyperlipidemia, unspecified; E87.1 Hypo-osmolality and hyponatremia; E88.09 Other disorders of plasma-protein metabolism, not elsewhere classified; G40.909 Epilepsy, unspecified, not intractable, without status epilepticus; G82.20 Paraplegia, unspecified; I10 Essential (primary) hypertension; Z16.12 Extended spectrum beta lactamase (ESBL) resistance; Z87.440 Personal history of urinary (tract) infections; B96.20 Unspecified Escherichia coli [E. coli] as the cause of diseases classified elsewhere; F39 Unspecified mood [affective] disorder; Z79.4 Long term (current) use of insulin; Z79.84 Long term (current) use of oral hypoglycemic drugs; Z68.41 Body mass index [BMI] 40.0-44.9, adult; B96.89 Other specified bacterial agents as the cause of diseases classified elsewhere; Y92.129 Unspecified place in nursing home as the place of occurrence of the external cause
CPT/HCPCS: 36415; 71045-TC; 80048-TC; 80053-TC; 80076-TC; 81001; 82962-TC; 83605-TC; 83735-TC; 84100-TC; 85025-TC; 85730-TC; 87040-TC; 87081-TC; 87086-TC; 87186-TC; A4223; G0378; J0692; J1650; J1815; J2185; J7030; J7060